=== PATIENT | male | born 1965 | race Caucasian/White ===

== ENCOUNTER 2019-06-03 07:29 | Observation (INO) ==
[2019-06-02 16:27] LABS: HEMATOCRIT 39.3 % (42.0-52.0); HEMOGLOBIN 12.6 g/dL (14.0-18.0); MCH 19.3 PG (27-31); MCHC 32.1 g/dL (33-37); MCV 60.2 FL (81-99); MPV 10.5 FL (7.4-10.4); RBC 6.53 XMIL (4.7-6.1); RDW 18.2 % (11.5-14.5); WBC 8.23 X1000 (4.8-10.8)
[2019-06-02 16:59] LABS: AGAP 14; BUN 18 mg/dL (8-22); CALCIUM 9.1 mg/dL (8.8-10.2); CHLORIDE 104 mmol/L (98-107); COSMO 285; CREATININE 1.1 mg/dL (0.7-1.2); ESTIMATED GFR > 60; GLUCOSE 98 mg/dL (70-104); POTASSIUM 4.2 mmol/L (3.5-5.1); SODIUM 142 mmol/L (136-145); TCO2 24 mmol/L (25-35)
[2019-06-03] MEDS ORDERED: KEFZOL 1 GM/D5W 2 GM/100 ML IVPB ONE (07:56)
[2019-06-03] MEDS ORDERED: LR 1,000 ML ONE (07:56)
[2019-06-03] MEDS ORDERED: PEPCID ONE (08:08)
[2019-06-03] MEDS ORDERED: REGLAN ONE (08:08)
[2019-06-03] MEDS ORDERED: FENTANYL ONE (08:32)
[2019-06-03] MEDS ORDERED: DIPRIVAN 1% ONE (08:32)
[2019-06-03] MEDS ORDERED: SODIUM CHLORIDE 0.9% 10 ML ONE (10:29)
[2019-06-03] MEDS ORDERED: NORCURON ONE (10:29)
[2019-06-03] MEDS ORDERED: ROBINUL ONE (10:32)
[2019-06-03] MEDS ORDERED: NEOSTIGMINE ONE (10:33)
[2019-06-03] MEDS ORDERED: DECADRON ONE (10:35)
[2019-06-03] MEDS ORDERED: ZOFRAN ONE (10:35)
[2019-06-03] MEDS ORDERED: AK-FLUOR ONE (10:52)
[2019-06-03] MEDS ORDERED: MORPHINE ONE ×2 (10:58→12:08)
[2019-06-03] MEDS ORDERED: QUELICIN (DOSE) ONE (11:05)
[2019-06-03] MEDS ORDERED: XYLOCAINE-MPF 2% ONE (11:05)
[2019-06-03] MEDS ORDERED: B & O 15A SUPP ONE (11:31)
[2019-06-03] MEDS ORDERED: DITROPAN ONE (12:09)
[2019-06-03] MEDS ORDERED: MORPHINE IV PRN (12:46)
[2019-06-03] MEDS ORDERED: ZOFRAN IV PRN (13:00)
[2019-06-03] MEDS ORDERED: DITROPAN PO PRN (13:00)
[2019-06-03] MEDS ORDERED: LABETALOL IV PRN (13:00)
[2019-06-03] MEDS: NORCO-7.5 PO PRN ×2 (16:16→20:21)
[2019-06-03] MEDS: LR 1,000 ML IV SCH ×3 (16:17→20:23)
[2019-06-03] MEDS: KEFZOL 1 GM/D5W 1 GM/50 ML IVPB IV SCH (16:17)
[2019-06-03] MEDS ORDERED: NICODERM PATCH TD PRN (17:15)
[2019-06-03] MEDS: COLACE PO SCH (20:21)
[2019-06-03] MEDS: PERIDEX MT SCH (20:21)
--- NOTE | 2019-06-03 22:31 | OPERATIVE NOTE ---
PROCEDURE DATE: 06/03/2019 PREOPERATIVE DIAGNOSES: 1. Bladder mass. 2. Left hydronephrosis. POSTOPERATIVE DIAGNOSES: 1. Bladder mass. 2. Left hydronephrosis. PROCEDURE PERFORMED: 1. Cystoscopy with transurethral resection of bladder tumor greater than 5 cm. 2. Attempted left retrograde pyelogram. 3. Urethral dilation. SURGEON: Nico Roberson MD. CONTRACT PROCESSOR: None. COMPLICATIONS: None. BLOOD LOSS: 20 mL. DRAINS: A 22-Thai, 3-way catheter. ANESTHESIA: General endotracheal intubation. SPECIMENS REMOVED: Bladder tumor. INDICATIONS FOR PROCEDURE: Mr. Abraham is a 53-year-old who had presented to Urology Clinic yesterday due to gross hematuria and likely bladder mass. The patient was seen in the emergency room by the ER physicians back in late April, and had a CT scan done at that time which showed a large bladder mass causing left hydronephrosis. The patient was having gross hematuria at that time and his hematuria seemed to get better per his report. However, he continues to have intermittent episodes of blood in his urine, which prompted him presenting to Urology for evaluation. Imaging reviewed, which showed an approximately 4 x 5 cm bladder mass present in the base of the bladder with associated left hydronephrosis. In talking with him, I told him there is a high likelihood that he has bladder tumor and that he likely needs surgical intervention. Risks, benefits, alternatives to surgical procedure were discussed with patient including hematuria, infection, damage to surrounding structures, pain, need for secondary surgeries, and injury to the bladder, and patient elected to proceed. DESCRIPTION OF PROCEDURE: After informed consent was obtained, the patient was brought to the operating room, placed on the operating table in supine position. The patient received preoperative antibiotics and underwent endotracheal intubation. He was then prepped and draped in usual sterile fashion. A preoperative time-out was performed with all parties in agreement, including anesthesia, surgical, and nursing staff. At which point, I inserted a 21-Thai cystourethroscope through the urethra and into the bladder. The patient had a normal urethra that was slightly narrow, with a small prostate with no evidence of obstruction. Once inside the bladder, papillary changes were seen overlying the trigone on the left side of the bladder and this transversed to a large mass present on the left lateral side wall of the bladder. It appeared to be less papillary in appearance, but more solid and had dystrophic calcifications. I could not visualize the entirety of the tumor just due to its location near the base of the bladder. The right ureteral orifice was seen to be uninvolved with tumor. At which point, no other lesions were seen within the bladder itself. The cystourethroscope was then removed. Using Brittni sounds starting at 20- Thai and increasing up to 28 F, these were sequential placed for passive dilation of the urethra. This allowed for easy passage of the 25-Thai resectoscope element. Once this was placed, the resectoscope was then assembled, and using bipolar electrocautery, attention was placed to resecting the base of the tumor, starting medially and working laterally to get a plane at the base of the tumor. Once this was resected, attention was then placed to the largest portion of the tumor, serially dissecting down until we could reach our prior resection scar. Attention was placed not to take deep bites overlying the trigone as this was concerning of the location of the left ureteral orifice. Once the entirety of the tumor was able to be systematically resected, no obvious ureteral orifice was seen. There did appear to be some fold of tissue that could be the ureteral orifice. Once good hemostasis was obtained in the periphery of the resection site, all of the chips were then removed through the resectoscope element and hemostasis was seen. At which point, I reinserted the 21-Thai cystourethroscope through the urethra and up into the bladder, and then the patient was given fluorescein dye to see if we could see the ureteral orifice effluxing. No efflux was seen from the left side. However, good efflux was seen from the right ureteral orifice, whereas no efflux was seen from the left ureteral orifice. Ultimately, I was able to use an open-ended catheter and a wire, and attempted to place the wire through what appeared to be a possible ureteral orifice. It seemed to go a small distance. The open-ended catheter was advanced and attempted retrograde was then performed, which showed the contrast was not within the ureteral lumen, but extravesical. No obvious site for the ureteral orifice was seen on inspection of the entirety of the bladder on the left side. At which point, the cystourethroscope was removed, the resectoscope element was then reinserted, and the peripheral of the resection scar was then cauterized. The patient's bladder was cycled multiple times with no residual chips seen within the bladder itself. The resection site was a total of 5 cm in size with some papillary changes seen posterior and lateral to the initial tumor. All of this was cauterized and resected down to the base. Hemostasis was obtained. The patient's bladder was left full and a 22-Thai, 3-way catheter was inserted with ease into the bladder, which drained light pink irrigant. This was inflated with 20 mL of sterile water and placed to gravity drainage. Catheter was flushed multiple times with no residual clots returning. This was placed to gravity drainage and a B & O suppository was inserted. The patient was then awoken and was taken to Recovery in stable condition. The patient will be monitored overnight and will plan to discharge tomorrow with indwelling catheter. Will follow up for evaluation of worsening renal function and flank pain due to inability to place a left ureteral stent due to hydronephrosis from tumor obstruction. At baseline, the patient likely has T3 disease due to preoperative hydronephrosis. We will evaluate clinically. If he has worsening renal function or flank pain, would consider percutaneous nephrostomy tube placement. cc: Nico Roberson MD [facility]
[2019-06-04] MEDS: KEFZOL 1 GM/D5W 1 GM/50 ML IVPB IV SCH ×2 (00:29→08:19)
[2019-06-04] MEDS: NORCO-7.5 PO PRN ×2 (00:30→05:20)
[2019-06-04 06:52] LABS: HEMATOCRIT 34.9 % (42.0-52.0); HEMOGLOBIN 11.2 g/dL (14.0-18.0); MCH 19.9 PG (27-31); MCHC 32.1 g/dL (33-37); MCV 61.9 FL (81-99); MPV 10.7 FL (7.4-10.4); RBC 5.64 XMIL (4.7-6.1); WBC 11.46 X1000 (4.8-10.8)
[2019-06-04 07:12] LABS: CALCIUM 8.5 mg/dL (8.8-10.2); CREATININE 1.4 mg/dL (0.7-1.2); POTASSIUM 3.8 mmol/L (3.5-5.1)
[2019-06-04 07:38] VITALS: BP 134/72
[2019-06-04] MEDS: COLACE PO SCH (08:19)
[2019-06-04] MEDS: PERIDEX MT SCH (08:20)
== END 2019-06-04 09:31 | disposition home or self-care (01) ==
LOC: 4N 07:29 → OR 07:29
PROVIDERS: ADMIT Urology; ATTEND Urology

== ENCOUNTER 2019-11-24 10:34 | Inpatient (IN) ==
[2019-11-24] MEDS ORDERED: NS 1,000 ML IV ONE ×2 (10:56→14:43)
[2019-11-24] MEDS ORDERED: ZOFRAN IV ONE (10:56)
[2019-11-24] MEDS ORDERED: D50W SYRINGE ONE (11:06)
--- NOTE | 2019-11-24 11:37 | Diag Imaging Result Doc PS360 ---
EXAM: CHEST-1 VIEW 11/24/2019 HISTORY: SOB TECHNIQUE: AP portable at 1117 COMMENT: There is ill-defined opacity in the left upper lobe and left lower lobe. The right lung appears relatively clear. There are no previous studies. IMPRESSION: Bronchopneumonia on the left. Electronically signed by Jacky Christianson 11/24/2019 11:35 AM
[2019-11-24 11:38] LABS: INR 1.34; PROTIME 16.8 Seconds (11.0-16.0)
[2019-11-24] MEDS ORDERED: D50W SYRINGE IV ONE ×3 (11:38→17:48)
[2019-11-24 11:39] LABS: BASO# 0.02 X1000 (0.0-0.2); BASO% 0.1 % (0.0-0.8); EOS# 0.02 X1000 (0.0-0.7); EOS% 0.1 % (0.0-10.0); HEMATOCRIT 19.8 % (42.0-52.0); HEMOGLOBIN 6.6 g/dL (14.0-18.0); IMM GRAN# 0.19 X1000 (0.0-0.04); IMM GRAN% 1.3 % (0.0-0.5); LYMPH# 0.77 X1000 (1.2-3.4); LYMPH% 5.2 % (20.5-51.1); MCH 18.5 PG (27-31); MCHC 33.3 g/dL (33-37); MCV 55.6 FL (81-99); MONO# 0.57 X1000 (0.11-0.59); MONO% 3.8 % (1.7-9.3); NEUT# 13.36 X1000 (1.4-6.5); NEUT% 89.5 % (42.2-75.2); PLT 346 X1000 (130-400); PTT 33.1 Seconds (22.3-41.8); RBC 3.56 XMIL (4.7-6.1); RDW 18.7 % (11.5-14.5); WBC 14.93 X1000 (4.8-10.8)
[2019-11-24] MEDS ORDERED: LEVAQUIN 750 MG/D5W 750 MG/150 ML IVPB IV ONE (11:42)
[2019-11-24 11:54] LABS: ALLEN TEST NO; BE -17.4 mmoll (-3.0-3.0); BLOOD TYPE ARTERIAL; HCO3-(ACT) 11.3 mmoll (20.0-26.0); METHB 1.4 % (0.0-1.5); O2(CT) 9.1 mL/dL (15.0-23.0); PCO2(98.6) 24 mmHg (35-45); PO2(98.6) 74 mmHg (60-100); SAMPLE BLOOD; SAO2 92.3 % (95.0-100.0)
[2019-11-24 11:55] LABS: MODALITY CANNULA
[2019-11-24 11:56] LABS: pH(98.6) 7.19 (7.35-7.45)
[2019-11-24 12:29] LABS: ANISOCYTOSIS 1+; HYPOCHROM 1+; LYMPHS 6 % (21-51); MONO 4 % (1-9); SEGS 90 % (42-75)
[2019-11-24 12:30] LABS: MICROCYTOSIS 3+; POIKILOCYTOSIS 1+; SCHISTOCYTES OCCASIONAL
--- NOTE | 2019-11-24 12:40 | EKG Report ---
Test Performed on : 11/24/2019 10:43:48 AM Test Reason : WEAKNESS Blood Pressure : / mmHG Vent. Rate : 110 BPM Atrial Rate : 113 BPM P-R Int : 000 ms QRS Dur : 162 ms QT Int : 462 ms P-R-T Axes : 000 128 021 degrees QTc Int : 625 ms Wide QRS rhythm. Right bundle branch block Left posterior fascicular block Bifascicular block Abnormal ECG No previous ECGs available Unconfirmed Result
[2019-11-24 13:01] LABS: ACETAMINOPHEN 5.1 ug/mL (10-30); AGAP 47; ALB/GLOB RATIO 1.4; ALBUMIN 3.9 g/dL (3.5-5.0); ALKALINE PHOSPHATASE 98 U/L (32-122); BUN 240 mg/dL (8-22); CALCIUM 8.1 mg/dL (8.8-10.2); CHLORIDE 79 mmol/L (98-107); COSMO 355; ESTIMATED GFR 1; GLUCOSE 49 mg/dL (70-104); GOT 37 U/L (10-34); GPT 23 U/L (10-44); SALICYLATES < 3.00 mg/dL (3-10); SODIUM 137 mmol/L (136-145); TCO2 11 mmol/L (25-35); TOTAL BILIRUBIN 0.29 mg/dL (0.20-1.00); TOTAL PROTEIN 6.7 g/dL (6.3-8.3)
--- NOTE | 2019-11-24 13:01 | Diag Imaging Result Doc PS360 ---
EXAM: CT HEAD W/O CONTRAST 11/24/2019 HISTORY: WEAKNESS TECHNIQUE: This exam was performed using automated exposure control, adjustment of mA or kV according to patient size, and/or use of iterative reconstruction technique. COMMENT: There are no previous studies available for comparison. There is no evidence of mass effect, bleed, or abnormal extra-axial fluid collection. Some of the images are degraded by patient motion. Two acquisitions were obtained. The visualized paranasal sinuses are clear. The calvarium appears to be intact. IMPRESSION: No evidence of acute intracranial disease. Electronically signed by Jacky Christianson 11/24/2019 12:59 PM
[2019-11-24 13:05] LABS: POTASSIUM 9.7 mmol/L (3.5-5.1)
[2019-11-24 13:06] LABS: CREATININE 33.3 mg/dL (0.7-1.2)
[2019-11-24] MEDS ORDERED: SODIUM BICARBONATE 8.4% IV PUSH ONE (13:09)
[2019-11-24] MEDS ORDERED: HUMULIN R IV ONE ×2 (13:09→17:51)
[2019-11-24] MEDS ORDERED: KAYEXALATE PO ONE (13:10)
[2019-11-24] MEDS ORDERED: MORPHINE IV ONE (13:14)
--- NOTE | 2019-11-24 13:26 | Diag Imaging Result Doc PS360 ---
EXAM: CT ABDOMEN/PELVIS W/O CONTRAST 11/24/2019 HISTORY: HEMATURIA TECHNIQUE: This exam was performed using automated exposure control, adjustment of mA or kV according to patient size, and/or use of iterative reconstruction technique. COMMENT: There are patchy alveolar opacities present in both lower lobes the lingula and the right middle lobe and particularly in the left lower lobe. There is a pleural effusion on the right. None of these findings were present on 05/18/2019. There is a fair amount of stool present in the colon. Both kidneys are grossly hydronephrotic. This is much worse than on the previous study. The urinary bladder is not distended but is markedly thickened with particular focal thickening in the posterior lateral left side. There is considerable presacral soft tissue density and there are numerous perirectal nodes none of which was present at the time the previous study. There is external iliac adenopathy bilaterally which is much worse than on the previous study. There is periaortic adenopathy most notably below the level the renal pedicle on the left where there is a node measuring almost 15 mm. This is much larger than on the previous study. There is no evidence of small bowel obstruction. The appendix is normal in appearance. There is a granuloma in the spleen. The adrenal glands are not enlarged. There are no gross hepatic or pancreatic abnormalities in the absence of IV contrast. There are numerous lytic lesions present in the pelvis most notably in the anterior inferior pubic ramus on the left. This was not the case previously. There are also small lytic lesions present in the sacrum and L4. IMPRESSION: Advanced bladder carcinoma with extensive adenopathy, including in the retroperitoneum in the left periaortic region. Osseous metastatic disease. Severe bilateral hydronephrosis due to obstruction of the distal ureters. Constipation. The possibility of proctitis or direct involvement of the perirectal space by tumor cannot be excluded. Electronically signed by Jacky Christianson 11/24/2019 1:24 PM
--- NOTE | 2019-11-24 14:21 | PROVIDER DOCUMENTATION ---
This chart was entered by Dianne Orozco Scribe, acting as scribe for Tk Reddy MD. HPI-General Adult - General Stated Complaint: WEAKNESS,BLADDER CANCER Time Seen by Provider: 11/24/19 10:49 Source: patient Allergies/Adverse Reactions: Patient Allergies Allergy/AdvReac Type Severity Reaction Status Date / Time No Known Allergies Allergy Verified 06/03/19 07:54 Home Medications: Home Medication List Medication Instructions Recorded Confirmed Last Taken Type Aspirin/Acetaminophen [Goody's 1 packet PO BID PRN 05/18/19 06/03/19 05/31/19 History Body Pain Powder Pkt] Hydrocodone/Acetaminophen [Spivey 1 ea PO Q6H PRN #10 tab 06/04/19 Unknown Rx 5-325 Tablet] Oxybutynin [Ditropan] 5 mg PO Q8H PRN #12 tab 06/04/19 Unknown Rx Sulfamethoxazole/Trimethoprim 1 ea PO BID #6 tab 06/04/19 Unknown Rx [Bactrim Ds Tablet] - History of Present Illness -Gen Adult Nature of Presenting Problems: 53yom presents to ED cc weakness, dizziness, vomiting and increased petechia for last 2 weeks. Pt reports he was dx with bladder cancer last yr, referred to an Oncologist, referred for surgery but refused tx. Pt denies hematuria/F. Pt has been taking lots of Goody's powder and taking meds off internet for 'dog worms' lately. Pt blood sugar is 45 upon exam. Location of Pain/Injury: reports: generalized Severity: reports: mild, moderate Onset/Duration: reports: last week Timing: reports: still present Context/Activities at Onset: reports: light activity Modifying Factors: improves with: nothing Associated Symptoms: reports: dizziness, nausea, vomiting, weakness Similar Symptoms Previously?: Yes Recently seen or treated by another doctor?: No Review of Systems - Adult - REVIEW OF SYSTEMS - ADULT Constitutional: reports: see eliu RUBALCAVA. denies: chills, fever Eyes: reports: no symptoms reported Ears, Nose, Mouth & Throat: reports: no symptoms reported Cardiovascular: reports: no symptoms reported Respiratory: reports: no symptoms reported Gastrointestinal: reports: see HPI, nausea, vomiting. denies: abdominal pain, diarrhea Genitourinary: reports: no symptoms reported Musculoskeletal: reports: no symptoms reported Integumentary: reports: no symptoms reported Neurological: reports: see HPI, dizziness/vertigo Psychiatric: reports: no symptoms reported Endocrine: reports: no symptoms reported Hematologic/Lymphatic: reports: see HPI, other (petechia) Allergic/Immunologic: reports: no symptoms reported All Other Systems: Reviewed and Negative Past History - Adult - PAST MEDICAL HISTORY-ADULT Review of Records: reports: Nursing Assessment Review, Medications Reviewed, Social history reviewed & non-contributory. Major Childhood Illnesses: reports: denies history Cardiovascular: reports: denies history Respiratory: reports: denies history Gastrointestinal: reports: denies history Obstetrical/Gynecological: reports: denies history Genitourinary: reports: denies history Musculoskeletal: reports: chronic pain (back) Neurological: reports: denies history Endocrine/Immune: reports: denies history Other Conditions: reports: denies history - IMMUNIZATION STATUS Childhood Immunizations: See Nurse Assessment Flu Vaccine: See Nurse Assessment - FAMILY HISTORY Family History: reviewed, not pertinent - SOCIAL HISTORY Smoking: cigarettes, greater than 1 pack/day Provider spent 3-5 mins advising pt. on dangers of tobacco.: Discussed manners to quit use, and f/u contacts for add'l counseling. Physical Exam-General - PHYSICAL EXAM-ADULT Initial Vital Signs Reviewed: Yes - CONSTITUTIONAL General Appearance: alert. negative: anxious, combative - EYES Eyes: PERRL/EOMI, pale conjunctivae (bilateral). negative: photophobia - HEAD, EARS, NOSE, MOUTH & THROAT HENMT: normocephalic/atraumatic. negative: moist mucous membranes (dry), angioedema - NECK Neck: supple, normal inspection - RESPIRATORY Respiratory: chest non-tender, lungs clear, normal breath sounds. negative: rhonchi, wheezing - CARDIOVASCULAR Cardiovascular: normal peripheral pulses, regular rate, rhythm, no edema. negative: bradycardia, tachycardia - GASTROINTESTINAL (ABDOMEN) Abdominal Exam: normal bowel sounds, non tender, soft. negative: guarding, rebound - MUSCULOSKELETAL Extremity: normal inspection, no pedal edema, no calf tenderness, normal capillary refill. negative: deformity, swelling - SKIN Integumentary: normal turgor, petechiae. negative: diaphoresis, jaundice - PSYCHIATRIC Psych/Mental Status: normal mood/affect, oriented x 3. negative: anxious, disheveled Progress - PLAN OF CARE/RESULTS Result Diagrams: 11/24/19 11:00 11/24/19 11:00 - EKG 1 Time of EKG reading by physician:: 10:44 EKG Read and Signed by:: Tk Reddy EKG Interpretation (*Must complete 3 of following elements*): Abnormal (Nonspecific intraventricular block) [place]: right ST Wave: normal - XRAY 1 XRAY: Bilateral XRAY Study: Chest Impression: See EMR Report (IMPRESSION: Bronchopneumonia on the left. Electronically signed by Jacky Christianson 11/24/2019 11:35 AM) - CT/MRI 1 CT Study: Abdomen, Pelvis Impression: See EMR Report (IMPRESSION: Advanced bladder carcinoma with extensive adenopathy, including in the retroperitoneum in the left periaortic region. Osseous metastatic disease. Severe bilateral hydronephrosis due to obstruction of the distal ureters. Constipation. The possibility of proctitis or direct involvement of the perirectal space by tumor cannot be excluded. Electronically signed by Jacky Christianson 11/24/2019 1:24 PM) 2 CT Study: Head Impression: See EMR Report (IMPRESSION: No evidence of acute intracranial disease. Electronically signed by Jacky Christianson 11/24/2019 12:59 PM) - CONSULTS/PCP/HOSPITALIST Notification #1 *Consult/PCP/Hospitalist*: Dr. Holden Time Discussed: 13:56 Consult Disposition: other (wants pt in ICU and surgery consulted for access) #2 Consult: Fannie/[employer] Time Discussed: 13:58 Consult Disposition: Admit Departure - Departure Date of Disposition Decision: 11/24/19 Time of Disposition Decision: 13:57 DIAGNOSIS: Anemia Pneumonia Qualifiers: Pneumonia type: due to unspecified organism Laterality: unspecified laterality Lung location: unspecified part of lung Qualified Code(s): J18.9 - Pneumonia, unspecified organism Acute renal failure (ARF) Qualifiers: Acute renal failure type: unspecified Qualified Code(s): N17.9 - Acute kidney failure, unspecified Disposition: ADMITTED INPATIENT 09 Certified Medical Emergency: Emergent Condition: Critical Referrals and Follow-Ups: None,PCP [Primary Care Provider] - Discharge Education: Steps to Quit Smoking, [id number] - Critical Care Note This patient required my direct & personal management of CC.: Yes Total Time (mins): 120 Critical Care Statement: This patient required my direct personal management to treat or rule out processes, the absence of which, could potentiallly result in sudden, clinically significant life or limb threatening deterioration. Attestation - Physician/ ANTHONY Attestation Patient care was provided by Advanced Practice Provider:: No The physician spent face to face time with patient:: Yes Advanced Practice Provider documentation review:: Supervising physician onsite and consulted in the evaluation and care of this patient. The physician did have a face to face encounter with the patient. This chart was documented by the indicated scribe, (Dianne Orozco Scribe) and accurately reflects the services I performed and decisions made by me, Tk Reddy MD, as attested by the provider's signature.
[2019-11-24] MEDS ORDERED: SODIUM BICARBONATE 8.4% IV ONE (15:27)
[2019-11-24] MEDS ORDERED: ZOFRAN IV PRN (15:28)
[2019-11-24] MEDS: SODIUM BICARBONATE 8.4% 150 MEQ in D5W 1,000 ML IV SCH (16:07)
[2019-11-24] MEDS: LOKELMA POWDER PACKET PO SCH (16:08)
[2019-11-24] MEDS ORDERED: ATIVAN IV ONE (16:15)
[2019-11-24] MEDS ORDERED: ATIVAN ONE (16:21)
[2019-11-24] MEDS ORDERED: NS 2,000 ML MISC PRN (16:25)
--- NOTE | 2019-11-24 17:15 | Diag Imaging Result Doc PS360 ---
EXAM: CHEST-PORTABLE INDICATION: vas cath placement verification TECHNIQUE: One view COMPARISON: 11/24/2019 FINDINGS: There is a newly placed double-lumen central catheter. The tip projects over the region of the atriocaval junction in the expected position. There is no evidence of pneumothorax postplacement. There has been interval worsening of the infiltrates throughout the left lung since the previous study. There also appears to have been development of perihilar infiltrate on the right. Cardiac silhouette is stable. IMPRESSION: 1.Interval placement of right central line in the expected position with no evidence of postplacement pneumothorax. 2.Interval worsening of infiltrates throughout the left lung and development of right perihilar infiltrate. Electronically signed by Shine Green 11/24/2019 5:13 PM
[2019-11-24] MEDS ORDERED: NS 500 ML IV ONE (17:35)
[2019-11-24 17:42] LABS: CALCIUM 7.6 mg/dL (8.8-10.2)
[2019-11-24 17:43] LABS: CREATININE 28.4 mg/dL (0.7-1.2)
[2019-11-24] MEDS ORDERED: MAXIPIME 1 GM in NS 50 ML IV ONE (17:46)
[2019-11-24] MEDS ORDERED: CALCIUM GLUCONATE 4.65 MEQ in NS 50 ML IV ONE (17:51)
[2019-11-24] MEDS ORDERED: ALBUTEROL 0.5% INH CONC FOR HYPERKALEMIA INH ONE (17:52)
[2019-11-24] MEDS: ZYVOX 600 MG/D5W 600 MG/300 ML IVPB IV SCH (18:33)
--- NOTE | 2019-11-24 19:08 | HISTORY AND PHYSICAL ---
CHIEF COMPLAINT: He was just not feeling well. HISTORY OF PRESENT ILLNESS: He is a 53-year-old male. He was diagnosed with bladder cancer about a year ago but refused all treatments. The only treatment he has used reportedly, he takes Goody powders and then he got some sort of medication off the Internet to treat parasitic infection in dogs, dog worm medication none. Unclear how much and how long he has been taking that I would say within the last week or so. Unclear if he has any baseline psychiatric issues, but he has had weakness, dizziness, vomiting, but now he wants treatment. I do not think he has had any urine output in at least 24 hours could be longer. He came in with profound renal failure, profound hyperkalemia for which he is undergoing dialysis as we speak. He was mentating well, although I think he has gotten since somewhat lethargic, but in any case, he was admitted for acute renal failure, most likely post obstructive uropathy from his bladder cancer with subsequent hyperkalemia and arrhythmia. The patient is critically ill. PAST MEDICAL HISTORY: He denies anything except bladder cancer. PAST SURGICAL HISTORY: Denies. FAMILY HISTORY: He has a sister who is diabetic. Mother with breast cancer. SOCIAL HISTORY: He does smoke about a pack a day for the last 20 years. No ethanol. No drugs. ALLERGIES: No known drug allergies. REVIEW OF SYSTEMS: Otherwise negative in terms of 10 point review of systems. PHYSICAL EXAMINATIONS: Vital Signs: Blood pressure 133/81, heart rate of 109, respiratory rate of 20. Temperature was 98.8 degrees. Cardiovascular: Regular rate and rhythm. Pulmonary: Bilateral breath sounds clear to auscultation. Gastrointestinal: Abdomen soft, nontender, nondistended. Bowel sounds are positive. Neurologic: Nonfocal. Musculoskeletal: 4/5 in all 4 extremities. HEENT: He had JVD on exam. He had injected sclerae. LABORATORY DATA: His labs are just wildly remarkable. His hemoglobin and hematocrit is 6.6 and 19. Coags okay; pH 7.19. His initial BUN and creatinine were 240 and 33 with a potassium of 9.7 and a bicarb of 11. His glucose was 45, came up to [address] showed worsening disease of the bladder. He has not had treatment but with bilateral ureteral obstruction and hydronephrosis, so he has a ureteral obstruction, which may be related to his cancer. ASSESSMENT: This is a 53-year-old male with bladder cancer, which I think at this point he has osseous metastatic disease: 1. Acute kidney injury. Due to the obstruction, we were unable to pass a Kam. Urology has been consulted but they need to be involved, although if he has a distal obstruction, he may need a nephrostomy tube at the discretion of Urology. Appreciate nephrology opinion. Continue IV fluids, urine electrolytes and monitor. 2. Hyperkalemia which is profound and amazingly elevated. We will continue. He is on a bicarbonate infusion. He is getting a nebulizer treatment around the clock and then now he is getting urgently dialyzed. 3. Potassium level is improved but not quite there yet. Bladder cancer looks like it is metastatic. We will get oncology opinion once we get all our information. It does not sound like he wants to be aggressive except for alternative medicine treatments at this point with it is spreading. DISPOSITION: Pending clinical status. Prognosis extremely guarded. We have consulted Dr. Roberson, Dr. Gómez and Dr. Gilmore. I will probably add Dr. Vila or Sofia the intensivists because he is having progressive hypoxia and we will continue to monitor closely. This is a 35 minute critical care note for acute hyperkalemia requiring intravenous medications, respiratory failure, emergent dialysis. cc: Ulises Hodges MD
--- NOTE | 2019-11-24 19:19 | OPERATIVE NOTE ---
PROCEDURE DATE: 11/24/2019 PREOPERATIVE DIAGNOSIS: Acute renal failure. POSTOPERATIVE DIAGNOSIS: Acute renal failure. PRINCIPAL PROCEDURE: Right internal jugular Vas-Cath using ultrasound. SURGEON: Yue Gilmore MD ANESTHESIA: Local in addition to IV sedation. ESTIMATED BLOOD LOSS: 25 mL DRAINS: None. INDICATIONS: Mr. Parminder Abraham is a 53-year-old white male who has developed acute renal failure and needs urgent hemodialysis. We were asked to place access. DESCRIPTION OF PROCEDURE: The patient was placed supine in his bed, ICU 3. His head was turned to the left and his right neck, shoulder and anterior chest were prepped and draped within a sterile field. I used ultrasound between the 2 heads of the right sternocleidomastoid muscle to identify the right internal jugular vein, which I accessed using an 18-gauge needle. Through this needle I placed a guidewire into the right side of the heart. The needle was removed. I placed a dilator over the guidewire, and then a Trialysis catheter was placed over the guidewire into the superior vena cava. The guidewire was removed. All 3 ports of the Trialysis catheter were functioning and were flushed with saline. I secured the catheter to the skin with two 3-0 nylon stitches, followed by dry dressing and an OpSite. He tolerated the procedure well. We will get a portable chest x-ray to confirm placement, with plans for dialysis later today. cc: Yue Gilmore MD
[2019-11-24 19:50] LABS: ALLEN TEST YES; BE -7.7 mmoll (-3.0-3.0); BLOOD TYPE ARTERIAL; HCO3-(ACT) 18.9 mmoll (20.0-26.0); METHB 2.8 % (0.0-1.5); O2(CT) 10.2 mL/dL (15.0-23.0); O2HB 94.3 % (95.0-99.0); PCO2(98.6) 31 mmHg (35-45); PO2(98.6) 357 mmHg (60-100); SAMPLE BLOOD; SRATE 20 BPM; THB 6.9 g/dL (11.5-17.4); pH(98.6) 7.35 (7.35-7.45)
--- NOTE | 2019-11-24 19:50 | NEPHROLOGY CONSULTATION ---
DATE: 11/24/2019 REASON FOR CONSULTATION: Acute kidney injury and hyperkalemia. HISTORY OF PRESENT ILLNESS: Mr. Abraham is a 53-year-old white male who was diagnosed with bladder cancer approximately 1 year ago. He did not accept traditional medical care and was lost to followup. He states that over the last several weeks, he has had progressively worsening weakness, shortness of breath, anorexia, nausea, twitching, etc., and declining urine output. Because of his worsening and severe symptoms, he came to the emergency room today. His initial evaluation disclosed blood pressure of 135/88, heart rate 92, respirations 16, and profound laboratory abnormalities, including potassium of 9.7, bicarbonate of 11 with anion gap of 47, BUN of 240, and creatinine of 33. Last creatinine in the chart from May was 1.4. I was contacted directly by Dr. Reddy to assist with management. He had already administered emergency care for his hyperkalemia, including IV bicarbonate, polystyrene, IV fluids, IV insulin, D50. On my arrival, he did not have EKG changes. Contacted Dr. Gilmore for access placement. PAST MEDICAL HISTORY: As above. HOME MEDICATIONS: None. ALLERGIES: None. SOCIAL HISTORY: Occasional marijuana. Minimal alcohol. FAMILY HISTORY: Negative. REVIEW OF SYSTEMS: Negative. PHYSICAL EXAMINATION: Vital Signs: Blood pressure 135/88, heart rate 92, respirations 16, afebrile. General: Chronically ill-appearing, pale, middle-aged man. Some increased work of breathing. Skin: Pale and dry. Eyes: Conjunctivae are pink. Pupils are equal. ENT: Oropharynx is dry. Poor dentition. Neck: Supple. Trachea is midline. Neck vein distention is present. Heart: PMI is nondisplaced. Regular rate and rhythm. No rubs. No gallops. Lungs: Equal breath sounds. A few scattered crackles. Abdomen: Soft, nontender. Bowel sounds present. No organomegaly or masses. Extremities: 2+ edema. No clubbing or cyanosis. Neurologic Exam: Myoclonus and asterixis. IMPRESSION: Renal failure. He has bilateral ureteral obstruction and an empty bladder. Unable to pass Kam catheter. Complicated by hyperkalemia and metabolic acidosis. Because of his severe uremia, he is at high risk for dialysis disequilibrium syndrome. As such, we will dialyze for only 3 hours using 200 blood flow and 200 dialysate flow, 2K bath, 2 L ultrafiltration target. Remeasure labs. Repeat dialysis in the morning. cc: Carlos Gómez MD
[2019-11-24 19:51] LABS: MODALITY BI PAP
[2019-11-24 20:59] LABS: CREATININE 15.9 mg/dL (0.7-1.2)
[2019-11-24] MEDS: SOLU-MEDROL IV SCH (23:12)
[2019-11-24] MEDS: ATIVAN IV PRN (23:15)
[2019-11-24] MEDS: XOPENEX NEB INH SCH (23:20)
[2019-11-24] MEDS: ATROVENT NEB INH SCH (23:21)
[2019-11-24 23:41] LABS: CREATININE 19.7 mg/dL (0.7-1.2)
[2019-11-24 23:42] LABS: CALCIUM 7.8 mg/dL (8.8-10.2); POTASSIUM 5.4 mmol/L (3.5-5.1)
[2019-11-25] MEDS: XOPENEX NEB INH SCH ×6 (02:57→23:00)
[2019-11-25] MEDS: ATROVENT NEB INH SCH ×6 (02:57→23:01)
[2019-11-25 04:44] LABS: ALLEN TEST YES; BE -5.6 mmoll (-3.0-3.0); BLOOD TYPE ARTERIAL; HCO3-(ACT) 20.6 mmoll (20.0-26.0); METHB 0.9 % (0.0-1.5); PCO2(98.6) 32 mmHg (35-45); PO2(98.6) 112 mmHg (60-100); SAMPLE BLOOD; SAO2 98.4 % (95.0-100.0); SRATE 20 BPM; THB 7.2 g/dL (11.5-17.4); pH(98.6) 7.38 (7.35-7.45)
[2019-11-25 04:45] LABS: MODALITY BI PAP
[2019-11-25] MEDS: SODIUM BICARBONATE 8.4% 150 MEQ in D5W 1,000 ML IV SCH ×2 (05:47→14:31)
[2019-11-25] MEDS ORDERED: NS 2,000 ML MISC PRN ×2 (05:49→06:18)
[2019-11-25] MEDS: SOLU-MEDROL IV SCH ×3 (06:07→21:17)
[2019-11-25] MEDS: ZYVOX 600 MG/D5W 600 MG/300 ML IVPB IV SCH ×2 (06:11→17:32)
--- NOTE | 2019-11-25 07:23 | Diag Imaging Result Doc PS360 ---
EXAM: CHEST-PORTABLE 11/25/2019 HISTORY: infiltrates TECHNIQUE: AP portable at 0505 COMMENT: There is increased opacification and volume loss in the right upper lobe compared to 11/24/2019. There is diffuse alveolar opacity in the left lung as there was previously. The right lower lobe and middle lobe are somewhat clearer and better expanded. Some of this may be due to air trapping however. IMPRESSION: Worsened atelectasis and/or pneumonia in the right upper lobe. Electronically signed by Jacky Christianson 11/25/2019 7:20 AM
[2019-11-25 07:32] LABS: CALCIUM 7.7 mg/dL (8.8-10.2); POTASSIUM 5.7 mmol/L (3.5-5.1)
[2019-11-25] MEDS: ATIVAN IV PRN ×3 (07:36→18:30)
[2019-11-25 07:50] LABS: CREATININE 20.2 mg/dL (0.7-1.2)
[2019-11-25] MEDS ORDERED: NS 500 ML ONE (08:17)
[2019-11-25] MEDS ORDERED: PROTONIX IV SCH (09:00)
[2019-11-25] MEDS: LOKELMA POWDER PACKET PO SCH (09:47)
[2019-11-25 10:45] LABS: HEPATITIS PROFILE ACUTE SEE COMMENTS
[2019-11-25] MEDS: HALDOL IV PRN ×2 (11:15→17:09)
[2019-11-25] MEDS ORDERED: DILAUDID IV PRN (13:06)
[2019-11-25] MEDS: LABETALOL IV PRN ×2 (13:15→17:09)
[2019-11-25] MEDS ORDERED: DILAUDID ONE (13:54)
[2019-11-25 13:55] LABS: HEMATOCRIT 21.7 % (42.0-52.0); HEMOGLOBIN 7.4 g/dL (14.0-18.0); IMM GRAN# 0.04 X1000 (0.0-0.04); IMM GRAN% 0.4 % (0.0-0.5); LYMPH# 0.29 X1000 (1.2-3.4); LYMPH% 2.8 % (20.5-51.1); MCH 21.1 PG (27-31); MCHC 34.1 g/dL (33-37); MCV 61.8 FL (81-99); MONO# 0.24 X1000 (0.11-0.59); MONO% 2.3 % (1.7-9.3); NEUT# 9.78 X1000 (1.4-6.5); NEUT% 94.5 % (42.2-75.2); PLT 221 X1000 (130-400); RBC 3.51 XMIL (4.7-6.1); RDW 26.9 % (11.5-14.5); WBC 10.35 X1000 (4.8-10.8)
--- NOTE | 2019-11-25 13:58 | PROVIDER PROGRESS NOTE ---
Progress Note Subjective: he is lying in the bed and has just started his slow low efficiency dialysis treatment. He complains of a dry mouth. No other complaints noted. Objective: temperature 98.1, pulse 105, respirations 21, blood pressure 134/83, 02 sat 99% on BiPAP. General: chronically ill white male lying in bed in no acute distress. HEENT: normocephalic, atraumatic, pupils equal and reactive, mucous membranes dry. Skin: pale, warm and dry. Neck: supple, 6 cm JVD Cardiovascular: S1, S2, distant heart tones. Tachycardic rate and rhythm. No murmurs or gallops noted. Respiratory: coarse lungs anteriorly Abdomen: soft, nontender, nondistended. Active bowel sounds. : non inspected Extremities: One plus pitting edema to the bilateral lower extremities with generalized upper extremity Edema Neurological: alert, oriented to person and place. Labs: sodium 140, potassium 5.7, chloride 93, carbon dioxide 17, BUN 135, creatinine 20.2, calcium 7.7. Intake 2750, output 2000. Impression: Acute renal failure with severe uremia and metabolic acidosis. He has advanced bladder carcinoma with extensive adenopathy severe bilateral hydronephrosis with obstruction of the distal ureters. He required urgent dialysis yesterday and achieved a 2 L ultrafiltration. We will repeat slow low efficiency dialysis today with a 4K bath and attempt a 4 to 6 L ultrafiltration over the course of 12 hours. Blood pressure. Stable. Fluid volume. Expanded. Sled for management. Electrolytes. Hyperkalemia. Sled for management. Acid base balance. Severe metabolic anion gap acidosis related to renal failure. Bicarbonate drip and Sled for management. Nutrition. He is NPO at this time. We will defer to primary. Medication review. IV antibiotics with dialysis. Discontinue lokelma
[2019-11-25] MEDS ORDERED: SODIUM CHLORIDE 0.9% INJ SCH (14:30)
[2019-11-25 14:49] LABS: ANISOCYTOSIS 1+; HYPOCHROM 2+; LYMPHS 3 % (21-51); MICROCYTOSIS 1+; MONO 2 % (1-9); SEGS 95 % (42-75)
[2019-11-25] MEDS: PROTONIX IV SCH (15:09)
--- NOTE | 2019-11-25 15:16 | PROGRESS NOTE ---
DATE: 11/25/2019 SUBJECTIVE: He is pretty obtunded. OBJECTIVE: Blood pressure is 157/90, heart rate of 90, respiratory rate of 20, temperature afebrile. Cardiovascular: Regular rate and rhythm. Pulmonary: Bilateral breath sounds clear to auscultation. GI: Soft, nontender, nondistended. Bowel sounds were positive. He was 94% on 50. Laboratory Data: White count 10, hemoglobin and hematocrit were 7 and 21, platelets 221,000. Chemistry: Potassium 5.7, creatinine down to 20, BUN down 135, bicarb was still at 17, sugars in the 150s. PROBLEM LIST: 1. He has metastatic prostate cancer, retroperitoneal adenopathy. He has osseous metastatic disease. He has bilateral distal ureter obstruction which has caused hydronephrosis and kidney failure. He is undergoing dialysis currently to get his potassium down and adjust his other issues. Greatly appreciate Dr. Gómez and Dr. Gilmore's intervention. Dr. Roberson is monitoring him as well. He had refused treatment in the past. Yesterday, he said he did want treatment. Now, he is pretty much minimally responsive so I do not have much to go by right now. 2. Acute kidney injury, obstructive uropathy. He will likely need a nephrostomy once his kidney function recovers. 3. Hyperkalemia. That is also improved. We will continue to follow closely. He is getting dialyzed. 4. Pneumonia. He is empirically on antibiotics. He has hypoxic respiratory failure. 5. Severe metabolic acidosis due to azotemia and uremia. We have him on bicarb and again, he is getting dialyzed. 6. Disposition is will depend on how he is doing. He is not really awake enough to make decisions. In my mind, he did not want treatment previously. Now, his condition has deteriorated and is truly end-stage. I am not sure he is going to be able to undergo any major treatment, either dialysis or other, but we will continue to follow. cc: Ulises Hodges MD
[2019-11-25] MEDS: LEVAQUIN 500 MG/D5W 500 MG/100 ML IVPB IV SCH (15:42)
--- NOTE | 2019-11-25 19:43 | PULMONOLOGY CONSULTATION ---
DATE: 11/25/2019 REQUESTING PROVIDER: Dr. Jason Hodges. REASON FOR CONSULTATION: Acute hypoxic respiratory failure. HISTORY OF PRESENT ILLNESS: This is a 53-year-old male with a medical history of bladder cancer diagnosed 1 year ago without treatment. He presented to the ER yesterday morning with worsening weakness, dizziness, vomiting and increased petechia for 2 weeks. Initial workup in the ER revealed acute kidney injury secondary to obstruction and significant elevated potassium at 9.7. Her respiratory status has been progressively worsening since admission, and he required BiPAP at this time. He had right internal jugular Vas-Cath placement yesterday and dialysis has been started since per Dr. Gómez. The patient currently is lying in bed and appears lethargic. There is no family at the bedside. All other information is obtained from the E-chart. PAST MEDICAL HISTORY: Bladder cancer diagnosed 1 year ago but refused all treatments. PAST SURGICAL HISTORY: Denies. FAMILY HISTORY: Positive for diabetes and breast cancer. SOCIAL HISTORY: The patient smokes 1 pack a day for over 20 years, inhaled marijuana occasionally. No history of alcohol or illicit drug use. ALLERGIES: No known drug allergies. REVIEW OF SYSTEMS: Unable to be obtained as patient is lethargic and wearing a BiPAP mask. PHYSICAL EXAMINATION: Vital Signs: Temperature 97.6 degrees, blood pressure 127/49, pulse 73, respiratory rate 24, oxygen saturation 100% on BiPAP with FiO2 40% and pressure 18/5. General: Lying in bed with a BiPAP mask on with mild tachypnea but no acute distress noted. HEENT: Atraumatic, normocephalic. Trachea midline. Pupils equal, round, reactive to light. Respiratory: Mild tachypnea. Symmetrical excursion. Auscultation revealed diminished breathing sounds bilaterally. Cardiovascular: Regular rate and rhythm with S1, S2 appreciated. Gastrointestinal: Soft, slightly distended. Bowel sounds normoactive in all 4 quadrants. Extremities: Bilateral lower extremity pitting edema 2 to 3+. No cyanosis, no clubbing. Neurologic: Lethargic, not answering questions. LABORATORY DATA: White blood cells 10.35, hemoglobin 7.4, hematocrit 21.7, platelets 221,000. Sodium 140, potassium 5.7, chloride 93, carbon dioxide 17, BUN 135, creatinine 20.2, glucose 131. ProBNP 12,463. ABG: pH 7.38, pCO2 of 32, pO2 112, HC03 20.6, base excess -5.6, oxyhemoglobin 96.0 on BiPAP with FiO2 50% and pressure 18/5. IMAGING DATA: Chest x-ray this morning showed worsened atelectasis and pneumonia in the right upper lobe. CT abdomen and pelvis without contrast on 11/24/2019 showed advanced bladder carcinoma with extensive dense adenopathy including in the retroperitoneal in the left periaortic region, osseous metastatic disease, severe bilateral hydronephrosis due to obstruction of the distal ureters, constipation and possible proctitis or direct involvement of the perirectal space by tumor. ASSESSMENT: This is a 53-year-old male with a medical history of bladder cancer diagnosed 1 year ago without treatment. He has been admitted since 11/24/2019 with acute kidney injury secondary to obstruction requiring dialysis and significant hypokalemia. 1. Acute hypoxemic respiratory failure, currently on BiPAP with FiO2 50% and tolerates well. 2. Pneumonia with atelectasis. 3. Acute kidney injury secondary to obstruction with bladder cancer. Dialysis has been started since yesterday per Dr. Gómez. 4. Significant hyperkalemia improving. 5. Compensated significant anion gap metabolic acidosis with respiratory alkalosis. 6. Fluid overload. 7. Poor prognosis. PLAN: 1. Continue supplemental oxygen with BiPAP. We titrate supplemental oxygen and BiPAP settings to patient's needs according to the clinical protocol. We will monitor patient's response closely. 2. We will check proBNP. 3. Antibiotics including Levaquin and Linezolid has been ordered. 4. Would start Haldol for anxiety as needed. 5. Bronchodilators have been ordered. 6. Continue dialysis per Dr. Gómez. 7. We will follow up ABG, CBC, BMP, chest x-ray. 8. Further recommendations pending hospital course. Thank you for the courtesy of this consult. Dr. Black did the examination, evaluation, management, and orders. LOULOU did the dictation for Dr. Black according to his direction. Total evaluation time in minutes: 34. Dictated by LOULOU Frances for Nieves Black MD cc: LOULOU Frances MD [facility]
[2019-11-25] MEDS ORDERED: LEVAQUIN 500 MG/D5W 500 MG/100 ML IVPB IV SCH (20:00)
[2019-11-25] MEDS: HEPARIN SUBQ SCH (21:17)
[2019-11-25] MEDS: DILAUDID IV PRN (23:17)
[2019-11-26] MEDS: HALDOL IV PRN ×2 (00:58→12:45)
[2019-11-26] MEDS: ATIVAN IV PRN ×3 (01:48→10:12)
[2019-11-26] MEDS: XOPENEX NEB INH SCH ×7 (03:25→23:41)
[2019-11-26] MEDS: ATROVENT NEB INH SCH ×7 (03:25→23:41)
[2019-11-26 05:01] LABS: ALLEN TEST YES; BE 1.3 mmoll (-3.0-3.0); BLOOD TYPE ARTERIAL; HCO3-(ACT) 25.9 mmoll (20.0-26.0); METHB 1.5 % (0.0-1.5); O2(CT) 13.4 mL/dL (15.0-23.0); O2HB 95.2 % (95.0-99.0); PCO2(98.6) 32 mmHg (35-45); PO2(98.6) 103 mmHg (60-100); SAMPLE BLOOD; THB 9.9 g/dL (11.5-17.4); pH(98.6) 7.49 (7.35-7.45)
[2019-11-26 05:02] LABS: MODALITY NRB
[2019-11-26] MEDS: SODIUM BICARBONATE 8.4% 150 MEQ in D5W 1,000 ML IV SCH (05:46)
--- NOTE | 2019-11-26 05:49 | Diag Imaging Result Doc PS360 ---
EXAM: CHEST-1 VIEW HISTORY: SOB TECHNIQUE: Single view COMPARISON: 11/25/2019 FINDINGS: The lungs are well expanded. No change in the right jugular catheter. Cardiomegaly. There are dense infiltrates throughout the left lung and in the upper right lung. There are smaller infiltrates in the medial right base. Overall the infiltrates have slightly progressed. IMPRESSION: Mild interval worsening Electronically signed by Dev Bae 11/26/2019 5:47 AM
[2019-11-26] MEDS: LABETALOL IV PRN ×2 (05:59→20:27)
[2019-11-26 06:27] LABS: HEMATOCRIT 22.2 % (42.0-52.0); HEMOGLOBIN 7.4 g/dL (14.0-18.0); IMM GRAN# 0.06 X1000 (0.0-0.04); IMM GRAN% 0.5 % (0.0-0.5); LYMPH# 0.31 X1000 (1.2-3.4); LYMPH% 2.6 % (20.5-51.1); MCH 20.8 PG (27-31); MCHC 33.3 g/dL (33-37); MCV 62.5 FL (81-99); NEUT# 10.64 X1000 (1.4-6.5); NEUT% 90.9 % (42.2-75.2); PLT 205 X1000 (130-400); RBC 3.55 XMIL (4.7-6.1); RDW 26.1 % (11.5-14.5); WBC 11.71 X1000 (4.8-10.8)
[2019-11-26] MEDS: SOLU-MEDROL IV SCH (06:59)
[2019-11-26] MEDS: DILAUDID IV PRN (07:03)
[2019-11-26 07:04] LABS: CALCIUM 8.8 mg/dL (8.8-10.2); CREATININE 5.4 mg/dL (0.7-1.2)
[2019-11-26] MEDS ORDERED: DILAUDID IV ONE (08:04)
--- NOTE | 2019-11-26 08:17 | PROGRESS NOTE ---
DATE: 11/26/2019 SUBJECTIVE: The patient remains in the ICU, was significantly agitated overnight per nursing, requiring a non-rebreather. Nurse states that patient is trying to take this off and then his saturations would drop at that time into the 70-80s. The patient continues to complain of back pain and is more lethargic this morning. OBJECTIVE: Vital signs: Temperature 99.5 degrees, heart rate 99, blood pressure 156/79, oxygen saturation 100% on non-rebreather. General: Lethargic, difficult to arouse, does arouse to deep stimulation and opens his eyes in response. The patient is moving all extremities. Respiratory: Good respiratory effort. Decreased lung sounds in the bases. The patient remains on non-rebreather. Abdomen: Soft, nontender, nondistended. No palpable masses. Genitourinary: No suprapubic tenderness. No CVA tenderness. LABORATORY DATA: White blood cell count 11.7, hemoglobin 7.4, hematocrit 20.2, platelets 205,000. Sodium 140, potassium 5.0, chloride 100, bicarb 23, BUN 33, creatinine 5.4, glucose 143. ASSESSMENT AND PLAN: Mr. Abraham remains in the ICU due to requiring hemodialysis as well as agitation and being on a non-rebreather. The patient has known metastatic bladder cancer and refused treatment previously. The patient presented with creatinine elevated at 33, which has downtrended with dialysis. Had a long discussion with patient's daughter and sister yesterday regarding long-term management. I discussed the role of nephrostomy tube placement versus stopping dialysis. I think patient would require nephrostomy tubes to drain his kidney if the family would want to proceed. The patient's renal function seems to be improving. Electrolytes are within normal limits after dialysis the last 2 days. I think patient would need chronic dialysis due to complete obstruction of his kidneys on CT scan if elects for nonoperative treatment. I talked extensively with him yesterday. They are still discussing to try to make a decision of the next step for the patient. I do not think that nephrostomy tubes will help with his back pain and will likely only allow him to potentially get off of dialysis. We will continue to monitor from a urologic standpoint. Please call with questions or concerns. cc: MD SUSAN Chan
[2019-11-26] MEDS ORDERED: NS 2,000 ML MISC PRN (08:37)
[2019-11-26] MEDS ORDERED: HEPARIN IV PRN ×2 (08:37)
[2019-11-26] MEDS: HEPARIN SUBQ SCH ×2 (08:57→20:27)
--- NOTE | 2019-11-26 09:18 | CONSULTATION ---
DATE OF CONSULTATION: 11/25/2019 CHIEF COMPLAINTS: History of bladder cancer and acute on chronic kidney disease. HISTORY OF PRESENT ILLNESS: Mr. Abraham is a 53-year-old with history of bladder cancer, which was diagnosed back in May. The patient was having gross hematuria and underwent CT scan which showed obstructing bladder mass with left hydronephrosis. He has taken the operating room for transurethral resection of the tumor as well as attempted ureteral stent placement. The patient had resection of tumor and was unable to see his ureteral orifice. The patient had indwelling catheter inserted and was diagnosed with muscle invasive cancer. Discussed the pathology with him at followup, at which point the patient refused any treatment or referral to any other providers regarding his bladder cancer. The patient was quite adamant that he did not want to undergo any procedures and wanted to live with his cancer. Discussed with him with his overall healthiness and that he would benefit from chemotherapy and radiation, versus neoadjuvant chemotherapy and cystectomy. The patient expressed understanding and did not want to proceed with any therapies. The patient subsequently had not been seen in the office since May. In talking with family, they state that he has been acting more confused and lethargic. He states that he was taking the medication for heartworms for dogs as this was allegedly helpful for treating cancer. He recently moved away from his ex-'s home and in with his sister who noticed worsening symptoms and brought him into the emergency room yesterday. The patient was weak with dizziness and vomiting with decreased p.o. intake and inability to adequately urinate. He states that he had not urinated in over 24 hours. Lab work was obtained which showed a creatinine of 33 with a potassium of 9. The patient was found to have increased work of breathing and is admitted to the ICU. He had a Vas-Cath placed and was started on dialysis. Urology was consulted due to CT scan findings of bilateral hydronephrosis with acute kidney injury. I talked with him today. The patient is lethargic and difficult to get adequate information from. Most of the information is obtained from notes as well as talking with his family. PAST MEDICAL HISTORY: Bladder cancer. PAST SURGICAL HISTORY: Transurethral resection of bladder tumor and attempted left retrograde pyelogram. ALLERGIES: No known drug allergies. MEDICATION: No prescription medication. SOCIAL HISTORY: Smoker. Denies alcohol or illicit drug use. FAMILY HISTORY: Denies family history of malignancy. REVIEW OF SYSTEMS: A 12 point review of systems performed with all pertinent positives and negatives in HPI. PHYSICAL EXAMINATION: Vital signs: Temperature 97.6, heart rate 73, blood pressure 67184, oxygenation 100% on BiPAP. General: Alert to person and place, slightly lethargic, but arousable. HEENT: Normocephalic, atraumatic. Slight dishevelled appearing. Poor dentition. Neck: Trachea midline without any obvious masses. Respiratory: Increased work of breathing on BiPAP. Cardiovascular: Regular rhythm with tachycardia. Abdomen: Soft, nontender, nondistended. : No suprapubic tenderness. No CVA tenderness. Normal phallus and no evidence of any catheter with orthotopic meatus. Musculoskeletal: Moving all extremities. Skin: No evidence of skin lesions or rash. Neurologic: Gross motor and sensory intact. Lower Extremity: 2+ lower extremity edema. LABS: White blood cell count 14.9, hemoglobin 6.6, hematocrit 19.8, platelets 346,000. Sodium 137, potassium 9.7, chloride 79, anion gap of 47, BUN of 240, creatinine 33.3, glucose 49, calcium 8.1. IMAGING: CT of the pelvis are reviewed, which showed a thickened bladder wall that with the entirety of the bladder with evidence of a mass in the bladder itself. It seems to invade to the rectum potentially as well as the prostate. Evidence of bilateral hydronephrosis that is moderate to severe with slight thinning of the parenchyma on the left side. Evidence of lymphadenopathy that is periaortic as well as iliac. Osseous mets are also visualized ASSESSMENT AND PLAN: Mr. Abraham who presents in consultation for metastatic bladder cancer with evidence of acute kidney injury due to bilateral ureteral obstruction from tumor. I think if the patient underwent cystoscopy and ureteral stent placement that his stents would rapidly be obstructed due to the degree of tumor burden. Also discussed with him that his clinical condition is quite critical with widely metastatic disease. Concern of requiring dialysis just to allow for adequate filtration of his blood. He has extensive disease and has a poor intermodal customer service survival even with systemic therapies. Family asked many questions about a long-term prognosis and the role treatment of his bladder cancer. I told them that at this point, that removal of the bladder likely is not feasible or recommended. The patient could receive chemotherapy or immune modulation, but would have to have significant improvement in renal function. He would require placement of nephrostomy tubes. This still may not help optimize his renal function or lead to long-term comfort. The patient's daughter is currently making decisions for the patient as he continues to be altered and lethargic. She asked many questions regarding the patient's comfortable and allowing him autonomy in making decisions. The patient expressed previously that he did not want any treatment for his cancer, but the family states that he is considering proceeding with some type of therapy at this time. Truthfully, I am not sure that treatment of cancer is an option for him. However, comfort measures to assist in optimization of his renal function and pain control may be. The patient's daughter will talk with her brother regarding Mr. Abraham's long-term decisions and we will try to make a decision regarding the next course in management. I think if patient wants continued care we should proceed with placement of bilateral nephrostomy tube. This could be arranged with Radiology. And if the patient's family elects for comfort measures, we could discuss removal of dialysis catheter and allow for optimization of respiratory status. The patient continues to be on BiPAP due to overload status. Attempted catheter placement was performed yesterday, however, likely this is limited by significant mass effect of his bladder cancer invading into periureteral tissue. We will continue to monitor from a urologic standpoint. Please call with questions or concerns. cc: Nico Roberson MD [facility]OSPITALPaula
[2019-11-26] MEDS ORDERED: DILAUDID IV PRN ×2 (11:09→11:21)
--- NOTE | 2019-11-26 11:54 | SEPSIS: TISSUE PERFUSION ASSMT ---
Sepsis: Tissue Perfusion Assmt - Physical Exam Assessment Date: 11/26/19 Time Assessment Initialized: 11:25 Vital Signs: Last Vital Signs Temp 100.0 F H 11/26/19 07:44 Pulse 120 H 11/26/19 10:32 Resp 29 H 11/26/19 10:32 BP 169/120 11/26/19 10:32 Pulse Ox 100 11/26/19 10:32 Height 6 ft Weight 79.832 kg Lung Sounds: crackles Heart Sounds: Regular Capillary Refill Time: Less Than 2 Seconds Peripheral Pulse Evaluation: radial (R): 2+, radial (L): 2+, dorsalis-pedis (R): 2+, dorsalis-pedis (L): 2+, posterior tibialis (R): 2+, posterior tibialis (L): 2+ Skin Exam: pink - Alternative Fluid Bolus Bolus Option: Alternative Fluid Resuscitation Bolus for morbidly obese patients with a BMI >30, Refer to [facility] [place] Body Weight Chart for Reference. Is patient's BMI >30?: No (Patient has renal failure and volume overload. Not a candidate for fluids.) Fluid Bolus dosed using the [place] Body Weight Chart: No - Impression Impression: Tissue Perfusion Adequate (Continue antibiotics.)
[2019-11-26] MEDS: LIDODERM TOP SCH (12:45)
--- NOTE | 2019-11-26 13:38 | PROGRESS NOTE ---
DATE: 11/26/2019 SUBJECTIVE: The patient continued to remain hypoxic. He had an episode of fever as well. His pulse has been 115. He has been extremely agitated and required multiple doses of intravenous medications, including lorazepam, haloperidol and hydromorphone. Family is currently at bedside. OBJECTIVE: General: Mr. Abraham is in significant pain, has been tossing and turning. Mr. Abraham or has not been able to engage in his clinical encounter meaningfully. Vital Signs: Temperature of 100 degrees, pulse 115, respiratory rate 24, blood pressure 169/120. He is saturating 100% on 100% non-rebreather mask. HEENT: On physical examination, oral cavity is dry. Pulmonary: He has decreased air entry bilateral lung dumas with inspiratory crackles. I could not appreciate any wheeze. Cardiovascular: S1, S2 normal, tachycardic. No murmur or gallop. Abdomen: Soft. Generalized tenderness, especially hypogastric region. Hypoactive bowel sounds. Extremities: No lower extremity edema. He is drowsy and confused. Appears delirious. LABS: Suggestive of leukocytosis, hemoglobin of 7.4, platelets of 205. He also has a pCO2 of 32, suggestive of acute respiratory alkalosis. His BUN and creatinine have been decreasing. He continues to have elevated proBNP. MICROBIOLOGY: No positive microbiological data. X-RAYS: Chest x-ray suggests interval worsening with bilateral lung infiltrate. ASSESSMENT AND PLAN: 1. Acute hypoxic respiratory failure due to bilateral multifocal pneumonia. Continue intravenous linezolid and intravenous levofloxacin. He has not been able to make sputum. I may have to adjust his antibiotics based on his renal function and respiratory status. Continue inhaled ipratropium and levalbuterol inhaler, considering he is not wheezing and holding his steroids at the moment. 2. Acute kidney injury due to bilateral hydronephrosis due to obstructive uropathy due to marked adenopathy. Urology team on board and recommends radiology-guided nephrostomy tubing if aggressive measures are to be pursued. His hyperkalemia and metabolic acidosis have been improving to dialysis. I will stop intravenous bicarbonate drip and continue slow, low efficiency dialysis according to Nephrology team's recommendation. 3. Metastatic urinary bladder cancer with retroperitoneal adenopathy and diffuse bony metastasis involving pelvis, as well as lower lumbar spine. It has been a challenge treating pain considering his tenuous respiratory status. I will increase intravenous hydromorphone dose and frequency to start him on topical lidocaine. I would also start him on sublingual Levsin to help with bladder spasms, as well as bisacodyl to help with constipation. DISPOSITION: Continue to monitor patient in ICU. Plan of care discussed with the patient's son. I tried to bring up about code status to him. However, he was in a hurry and he wanted me to give patient pain medications first to make him comfortable before making any decisions. I will have to have a detailed discussion with the family about code status, as well as goals of care to ensure better understanding among different family members about his critical condition, though they do understand that he is critical considering renal failure, lung failure. TIME SPENT: 35 minutes of critical care time was spent. cc: Celestino Carrillo MD MTDD
[2019-11-26] MEDS: LEVSIN-SL SL SCH ×3 (13:43→17:16)
[2019-11-26] MEDS: DULCOLAX PR SCH ×2 (13:44→22:09)
[2019-11-26] MEDS: SODIUM CHLORIDE 0.9% INJ SCH (14:28)
[2019-11-26] MEDS: PROTONIX IV SCH (14:28)
[2019-11-26] MEDS: MORPHINE IV PRN ×2 (14:28→20:27)
--- NOTE | 2019-11-26 15:02 | PROGRESS NOTE ---
DATE: 11/26/2019 ADDENDUM: I had a detailed discussion about his medical condition and management plan with the Oncology team, Nephrology team as well as nurse practitioner of Pulmonology team, and I was also informed that the patient's family had decided to make him full code and wanted to pursue aggressive measures, including possible palliative immunotherapy in the future. Considering that, the patient may need bilateral nephrostomy tubes eventually. Currently, he is acutely hypoxic and has been extremely agitated, so I am not sending him down for that procedure. We will allow his pneumonia to improve, his hypoxia to improve, and based on that, will consider nephrostomy tube sometime early next week. Plan of care discussed with Nephrology, Oncology and Pulmonology team. I had discussion with urology team and plan is possibly nephrostomy tube tomorrow. Anesthesia team is likely planning intubation during the procedure. And he may remain intubated post - procedure. cc: Celestino Carrillo MD MTDD
[2019-11-26] MEDS ORDERED: GEODON IM PRN (17:22)
[2019-11-26] MEDS ORDERED: STERILE WATER INJ. ONE (17:34)
[2019-11-26] MEDS: ZYVOX 600 MG/D5W 600 MG/300 ML IVPB IV SCH (18:40)
--- NOTE | 2019-11-26 19:39 | HEMO/ONC CONSULTATION ---
DATE: 11/26/2019 REQUESTED BY: Hospitalist service. REASON FOR CONSULTATION: Bladder cancer, patient known. HISTORY OF PRESENT ILLNESS: Mr. Abraham is a 53-year-old male who we have seen back in June in our office for muscle invasive bladder carcinoma. The patient at that time was very hesitant to consider any chemotherapy. We had scheduled him for followup, but he no-showed his appointments. He has now presented to the [facility] with sepsis. He has now been admitted to the ICU for critical care. He is currently with rather significant renal failure and on dialysis. He also had a strikingly elevated potassium of 9.7 on presentation. He is mentally altered, but he does have family that is with him in the hospital. PAST MEDICAL HISTORY: Negative except for this bladder cancer. PAST SURGICAL HISTORY: He has had a cystoscopy previously. FAMILY HISTORY: Positive for diabetes in his sister. His mother of breast cancer at the age of 49. REVIEW OF SYSTEMS: Hard to obtain. The patient is mentally altered at this time. PHYSICAL EXAMINATION: Vital signs: Temperature 100.1 degrees, heart rate 126, respirations 18, blood pressure 177/95, O2 saturation 95% on non-rebreather. General: This is a critically ill- appearing male in his hospital bed in the ICU. He has restraints in place. He has several members at bedside. He is agitated. He is not able to answer questions appropriately. Head: Appears to be normocephalic, atraumatic. Eyes: Sclerae anicteric. Mouth: Hard to assess as he has a non-rebreather on. Cardiovascular: Tachycardia noted. Respiratory: Coarse breath sounds throughout. Gastrointestinal: Abdomen is soft. Musculoskeletal: No obvious bony abnormalities. Neurologic: Patient is not oriented. LABS AND STUDIES: White blood cells today are 11.71, hemoglobin 7.4, platelet count 205,000. Sodium 140, potassium 5.0, BUN is 33, creatinine is down to 5.4 and was previously peaked at 20.2. CT of the abdomen and pelvis without contrast on 11/24/2019 showed advanced bladder carcinoma with extensive adenopathy including in the retroperitoneum and the left periaortic region. Osseous metastatic disease. Severe bilateral hydronephrosis due to obstruction of the distal ureters. ASSESSMENT AND PLAN: 1. Bladder cancer that now is metastatic. We have reviewed again with the patient and his family today that his disease is no longer curable, and that moving forward, we would be considering palliative therapy. If the patient is able to recover and get out of the hospital, we will be happy to see him as an outpatient. We will be happy to discuss with him treatment options, which do include at this point, immunotherapy, which he may be able to tolerate. He is not a candidate for [place] therapy given his renal failure. 2. Acute hypoxic respiratory failure due to bilateral multifocal pneumonia. Management per the primary team and the critical care team. 3. Acute kidney injury due to bilateral hydronephrosis due to obstructive uropathy due to marked adenopathy. Urology is on board. He needs nephrostomy tubes. He is being followed by both Urology and Nephrology. Management per them. 4. Metastatic urinary bladder cancer with retroperitoneal adenopathy and diffuse bony metastasis. Again, as per above. We will see him as an outpatient to discuss treatment options. This will be palliative treatment. We want to thank you for consulting us. We will continue to follow along. Dictated by JAVI Sanchez for Mare Bolton MD cc: Mare Bolton MD I have seen and examined the patient. The above note reflects my history, physical exam, assessment and plan. Mare DAVIS
--- NOTE | 2019-11-26 20:08 | NEPHROLOGY PROGRESS NOTE ---
DATE: 11/26/2019 SUBJECTIVE: He is awake, moaning and moving constantly, pulling off his mask and pulling at his IVs. OBJECTIVE: Vital Signs: Blood pressure 179/103, heart rate 117, respirations 23, T-max 100.1 degrees, intake 3.8 L. Output 5.8 L. In no acute distress except as above. Skin: Warm and dry. Pupils are equal. Neck: Neck veins are distended. Heart: Regular and tachycardic. Lungs: Equal. No crackles. Abdomen: Soft, nontender. Bowel sounds present. Extremities: With trace edema. No clubbing or cyanosis. IMPRESSION: Acute kidney injury secondary to obstruction. Dialysis again today. He will need percutaneous nephrostomies if he is going to have ongoing treatment. We will continue his dialysis until a clear plan of care has been developed by the family. cc: Carlos Gómez MD
[2019-11-26] MEDS ORDERED: MORPHINE IV ONE (21:27)
[2019-11-26] MEDS ORDERED: ROBAXIN 500 MG in NS 50 ML IV PRN (21:29)
[2019-11-26] MEDS ORDERED: APRESOLINE IV PRN (22:57)
--- NOTE | 2019-11-26 23:40 | PROVIDER PROGRESS NOTE ---
Progress Note Dr. Black Progress Note/Pulmonary and or critical care Subjective: The patient is constantly restless and agitated. He keeps complaining of pain. He is on two point restraint. RN at the bedside reports that Haldol 5mg, Ativan 1mg and Dilaudid 0.5mg do not help at all. Patients son and niece are at the bedside. During my encounter, patients son states he just wants the patient to be comfortable, but later Dr. Carrillo tells me that family wants to keep patient in full code with aggressive measures. Input was appreciated from Dr. Carrillo and other teams on the case. Objective: Vital Signs: T 100.1 (fever in last 24 hours), SC 119, RR 20, BP 176/112 and SaO2 94% on PRB 80%. I/O: -2014ml. Physical Examination: General: Restless and agitated. On 2 point restraint. HEENT: Normocephalic. Trachea midline. Mucosa pink and dry. Chest: Mild tachypnea. No increased work of breathing. Symmetrical excursion. Diminished air entry with inspiratory crackles bilaterally. CVS: Tachycardia. S1 and S2 appreciated. Abdomen: Soft. Non-distended. Bowel sounds present. Generalized tenderness. Extremities: No edema. No cyanosis. No clubbing. Neuro: Restless and agitated. Not answering any questions or follow any commands. Labs and Radiology: Laboratory Results 11/26/19 11/26/19 11/26/19 00:18 04:00 04:00 WBC 11.71 H RBC 3.55 L Hgb 7.4 L Hct 22.2 L MCV 62.5 L MCH 20.8 L MCHC 33.3 RDW Std Deviation 26.1 H Plt Count 205 MPV Not Reportable Immature Gran % (Auto) 0.5 Neut % (Auto) 90.9 H Lymph % (Auto) 2.6 L [place] % (Auto) 6.0 Eos % (Auto) 0.0 Baso % (Auto) 0.0 Immature Gran # (Auto) 0.06 H Neut # (Auto) 10.64 H Lymph # (Auto) 0.31 L [place] # (Auto) 0.70 H Eos # (Auto) 0.00 Baso # (Auto) 0.00 PTT (Actin FS) Specimen Type Sample Site pH pCO2 pO2 HCO3 Base Excess Oxyhemoglobin ABG O2 Sat (Calculated) ABG O2 Saturation ABG Carboxyhemoglobin ABG Methemoglobin Tramaine Test A-a O2 Difference Total Hemoglobin Lactate Liter Flow Blood Gas Modality FiO2 % Sodium 140 Potassium 5.0 Chloride 100 Carbon Dioxide 23 L Anion Gap 17 BUN 33 H D Creatinine 5.4 H Estimated GFR/1.73 m2 11 BUN/Creatinine Ratio 6 Glucose 143 H POC Glucose 130 H Calculated Osmolality 289 Calcium 8.8 11/26/19 11/26/19 11/26/19 04:50 05:04 08:26 WBC RBC Hgb Hct MCV MCH MCHC RDW Std Deviation Plt Count MPV Immature Gran % (Auto) Neut % (Auto) Lymph % (Auto) [place] % (Auto) Eos % (Auto) Baso % (Auto) Immature Gran # (Auto) Neut # (Auto) Lymph # (Auto) [place] # (Auto) Eos # (Auto) Baso # (Auto) PTT (Actin FS) Specimen Type ARTERIAL Sample Site R RADIAL pH 7.49 H pCO2 32 L pO2 103 H HCO3 25.9 Base Excess 1.3 Oxyhemoglobin 95.2 ABG O2 Sat (Calculated) 13.4 L ABG O2 Saturation 97.0 ABG Carboxyhemoglobin 0.40 ABG Methemoglobin 1.5 Tramaine Test YES A-a O2 Difference 570.0 Total Hemoglobin 9.9 L Lactate 1.90 Liter Flow 15.0 Blood Gas Modality NRB FiO2 % 100.0 Sodium Potassium Chloride Carbon Dioxide Anion Gap BUN Creatinine Estimated GFR/1.73 m2 BUN/Creatinine Ratio Glucose POC Glucose 133 H 123 H Calculated Osmolality Calcium 11/26/19 11/26/19 09:00 20:32 WBC RBC Hgb Hct MCV MCH MCHC RDW Std Deviation Plt Count MPV Immature Gran % (Auto) Neut % (Auto) Lymph % (Auto) [place] % (Auto) Eos % (Auto) Baso % (Auto) Immature Gran # (Auto) Neut # (Auto) Lymph # (Auto) [place] # (Auto) Eos # (Auto) Baso # (Auto) PTT (Actin FS) 32.3 Specimen Type Sample Site pH pCO2 pO2 HCO3 Base Excess Oxyhemoglobin ABG O2 Sat (Calculated) ABG O2 Saturation ABG Carboxyhemoglobin ABG Methemoglobin Tramaine Test A-a O2 Difference Total Hemoglobin Lactate Liter Flow Blood Gas Modality FiO2 % Sodium Potassium Chloride Carbon Dioxide Anion Gap BUN Creatinine Estimated GFR/1.73 m2 BUN/Creatinine Ratio Glucose POC Glucose 104 Calculated Osmolality Calcium Assessment: Acute hypoxemic respiratory failure. Bilateral multifocal pneumonia with atelectasis. CXR today shows mild interval worsening with bilateral lung infiltrates. Acute renal failure secondary to obstruction with bladder cancer. On dialysis per Dr. Gómez. Alkalemia with AG metabolic acidosis (improving), metabolic alkalosis and respiratory alkalosis. Bladder cancer, diagnosed one year ago, but no treatment pursued. Possibly nephrostomy tube placement tomorrow. Poor prognosis. Plan: Continue supplemental oxygen. We titrated supplemental oxygen to the patients needs for clinical protocols. Currently patient stays on NRB. We will keep closely monitoring patients clinical response. Lidocaine patch, sublingual Levsin, Morphine and Geodon started per Dr. Carrillo for pain and anxiety control. Continue antibiotics including Levaquin and Zyvox. Continue bronchodilators. Palliative care consult initiated. Continue GI and DVT prophylaxis. Evaluation time in minutes: 34 minutes
[2019-11-27] MEDS: LOPRESSOR IV SCH ×4 (00:07→17:46)
[2019-11-27] MEDS: MORPHINE IV PRN ×3 (01:27→18:46)
[2019-11-27] MEDS: ATIVAN IV PRN ×2 (01:30→05:33)
[2019-11-27] MEDS: XOPENEX NEB INH SCH ×6 (03:40→23:42)
[2019-11-27] MEDS: ATROVENT NEB INH SCH ×6 (03:40→23:42)
[2019-11-27 04:59] LABS: ALLEN TEST YES; BE -3.2 mmoll (-3.0-3.0); BLOOD TYPE ARTERIAL; HCO3-(ACT) 22.4 mmoll (20.0-26.0); METHB 1.4 % (0.0-1.5); MODALITY PRB; O2HB 95.7 % (95.0-99.0); PCO2(98.6) 30 mmHg (35-45); PO2(98.6) 178 mmHg (60-100); SAMPLE BLOOD; SAO2 97.7 % (95.0-100.0); THB 8.6 g/dL (11.5-17.4); pH(98.6) 7.44 (7.35-7.45)
[2019-11-27 06:02] LABS: BASO# 0.01 X1000 (0.0-0.2); BASO% 0.1 % (0.0-0.8); EOS# 0.01 X1000 (0.0-0.7); EOS% 0.1 % (0.0-10.0); HEMATOCRIT 24.8 % (42.0-52.0); IMM GRAN# 0.17 X1000 (0.0-0.04); IMM GRAN% 1.1 % (0.0-0.5); LYMPH# 0.87 X1000 (1.2-3.4); LYMPH% 5.6 % (20.5-51.1); MCH 20.4 PG (27-31); MCHC 32.3 g/dL (33-37); MCV 63.3 FL (81-99); MONO% 5.7 % (1.7-9.3); NEUT% 87.4 % (42.2-75.2); PLT 297 X1000 (130-400); RBC 3.92 XMIL (4.7-6.1); RDW 26.2 % (11.5-14.5); WBC 15.66 X1000 (4.8-10.8)
[2019-11-27 06:07] LABS: INR 1.25; PROTIME 15.9 Seconds (11.0-16.0)
[2019-11-27 06:08] LABS: PTT 30.3 Seconds (22.3-41.8)
[2019-11-27 06:23] LABS: CALCIUM 9.2 mg/dL (8.8-10.2); CREATININE 3.6 mg/dL (0.7-1.2); POTASSIUM 5.3 mmol/L (3.5-5.1)
[2019-11-27 06:37] LABS: LYMPHS 6 % (21-51); SEGS 86 % (42-75)
--- NOTE | 2019-11-27 06:59 | Diag Imaging Result Doc PS360 ---
EXAM: CHEST-1 VIEW 11/27/2019 HISTORY: SOB TECHNIQUE: AP portable at 0518 COMMENT: There is a right internal jugular central venous catheter with its tip just above the right atrium. There is alveolar opacity bilaterally which has improved slightly particularly with regard to the left lower lobe since the previous study of 11/26/2019. IMPRESSION: Improved pulmonary edema. Electronically signed by Jacky Christianson 11/27/2019 6:57 AM
[2019-11-27] MEDS: D50W SYRINGE IV PRN ×2 (08:08→11:01)
[2019-11-27] MEDS: LIDODERM TOP SCH (08:10)
[2019-11-27] MEDS: DULCOLAX PR SCH ×2 (08:11→20:15)
[2019-11-27] MEDS: LEVSIN-SL SL SCH ×3 (08:11→17:44)
[2019-11-27] MEDS: HEPARIN SUBQ SCH ×3 (08:11→20:15)
[2019-11-27] MEDS ORDERED: NS 250 ML ONE (08:15)
[2019-11-27] MEDS ORDERED: XYLOCAINE 1% ONE (08:15)
[2019-11-27] MEDS ORDERED: XYLOCAINE 2% JELLY ONE (08:57)
[2019-11-27] MEDS ORDERED: AMIDATE ONE (08:59)
[2019-11-27] MEDS ORDERED: XYLOCAINE-MPF 2% ONE (08:59)
[2019-11-27] MEDS ORDERED: QUELICIN (DOSE) ONE (08:59)
[2019-11-27] MEDS ORDERED: NORCURON ONE (09:36)
--- NOTE | 2019-11-27 09:47 | EKG Report ---
Test Performed on : 11/27/2019 06:24:53 AM Test Reason : Follow up QTc Blood Pressure : / mmHG Vent. Rate : 112 BPM Atrial Rate : 112 BPM P-R Int : 122 ms QRS Dur : 086 ms QT Int : 330 ms P-R-T Axes : 073 074 070 degrees QTc Int : 450 ms Sinus tachycardia. Minimal voltage criteria for LVH, may be normal variant Borderline ECG When compared with ECG of 24-NOV-2019 10:43, (Unconfirmed) Sinus rhythm. has replaced Wide QRS rhythm. Confirmed by Aren Downs MD ([id number]) on 11/27/2019 11:01:57 AM
[2019-11-27] MEDS ORDERED: LUBRIFRESH PM OPH OINTMENT ONE (09:56)
[2019-11-27] MEDS ORDERED: VERSED ONE (10:02)
[2019-11-27] MEDS ORDERED: BREVIBLOC ONE (10:09)
[2019-11-27] MEDS ORDERED: SOLU-CORTEF ONE (10:12)
[2019-11-27] MEDS: DIPRIVAN 1% 1,000 MG/100 ML BOTTLE IV SCH ×4 (11:12→23:32)
--- NOTE | 2019-11-27 11:17 | Diag Imaging Result Doc PS360 ---
EXAM: NEPHROSTOGRAM NEW ACCESS 11/27/2019 HISTORY: HYDRONEPHROSIS TECHNIQUE: Left percutaneous nephrostomy with ultrasonographic and fluoroscopic guidance. COMMENT: Consent had been previously obtained from the patient's family. The procedure was performed in the operating room. Following sterile preparation the skin posteriorly and administration 1% lidocaine to the skin and deeper soft tissues, the lower pole calyx was punctured and subsequent opacification of the system and passage of the 0.18 guidewire was performed. There is considerable extravasation of contrast. The tract was dilated to 11-E[place] and subsequently a 10.2-[place] cope loop nephrostomy catheter was placed in the lower renal pelvis. This is secured to the skin with suture and the adhesive device provided with catheter. IMPRESSION: Successful left percutaneous nephrostomy placement. Electronically signed by Jacky Christianson 11/27/2019 11:15 AM
--- NOTE | 2019-11-27 11:18 | Diag Imaging Result Doc PS360 ---
EXAM: NEPHROSTOGRAM NEW ACCESS 11/26/2019 HISTORY: Bilateral Hydronephrosis TECHNIQUE: Right percutaneous nephrostomy placement with ultrasonographic and fluoroscopic guidance COMMENT: Consent had been previously obtained from the patient's family. Following sterile preparation the skin and administration 1% lidocaine to the skin and deeper soft tissues, the lower pole calyx was punctured under ultrasonographic guidance and subsequent placement of guidewires and dilatation was performed under fluoroscopic guidance. The 10.2-[place] catheter was secured in the renal pelvis with its self retaining ligature and also to the skin with a suture and the adhesive device provided with catheter. IMPRESSION: Successful placement of percutaneous nephrostomy. Electronically signed by Jacky Christianson 11/27/2019 11:16 AM
--- NOTE | 2019-11-27 11:24 | PROGRESS NOTE ---
DATE: 11/27/2019 INTERVAL HISTORY: No acute events overnight. Mr. Abraham required multiple doses of lorazepam, haloperidol, and morphine to help with his pain. He remained agitated in the morning time. There were multiple family members at bedside. I discussed with them about his critical condition, possibly need for intubation even after surgery, pneumonia, metastatic cancer, poor prognosis, and I answered all of their questions. Mr. Abraham appears a little agitated and is not able to participate in the clinical encounter meaningfully. VITALS: Temperature 98.9 degrees, pulse 104, respiratory rate 19, blood pressure 174/89. He is saturating 100% on 80% non-rebreather mask. PHYSICAL EXAMINATION: He is agitated, in 4 point restraints. He has crackles in bilateral lung dumas, especially inframammary. S1, S2 normal, tachycardic, no murmur or gallop. Abdomen is soft. He has generalized tenderness, especially lower quadrant. Active bowel sounds. He does not have any lower extremity edema. He does not have his urine catheter. He is drowsy but arousable. He is following simple commands like opening mouth but is fidgety due to pain. I could not obtain meaningful history or assess his neurological function appropriately due to constant restlessness. DATA: Input and output suggest he had 1 incontinent void. Lab suggestive off WBC of 15,000, hemoglobin 8, platelet count 297,000. He has oxygenation of 178 on 80% non-rebreather. He has decreasing BUN and creatinine. His potassium was 5.3. Microbiology no new data. IMAGING: Chest x-ray suggests improvement in pulmonary edema. ASSESSMENT AND PLAN: 1. Acute hypoxic respiratory failure due to bilateral multifocal pneumonia. Continue intravenous linezolid and intravenous levofloxacin. Blood culture has not shown any growth to date. Continue inhaled levalbuterol and ipratropium nebulization. 2. Acute kidney injury due to bilateral hydronephrosis due to obstructive uropathy due to marked intraabdominal and pelvic adenopathy blocking ureters. Urology team is coordinating with Radiology team about putting in nephrostomy tubes. His hyperkalemia and metabolic acidosis have been stable. I will follow up his kidney function closely. He has been receiving SLED per Nephrology recommendation. 3. Metastatic urinary bladder cancer with intraabdominal adenopathy and diffuse metastasis involving pelvis as well as lower lumbar spine. The patient was diagnosed with urinary bladder cancer at least a year ago, however, had refused to undergo treatment. Now, the patient's sister and the other family members have decided to pursue aggressive measures. Continue sublingual Levsin for bladder spasm, intravenous morphine, intravenous haloperidol for agitation and bisacodyl to help with the constipation. Once his acute issues resolve and if he would be willing, he could be considered for possibly immunotherapy by oncology team in future outpatient. 4. Acute encephalopathy, likely in the setting of ongoing sepsis due to acute hypoxic sepsis due to multifocal pneumonia as well as intractable pelvic pain. I will continue to address it with intravenous haloperidol, as needed ziprasidone, lorazepam and intravenous morphine. DISPOSITION: I will continue to monitor patient in ICU. 35 minutes of critical care time has been spent. Radiology team is planning an bilateral nephrostomy tubes later today and the plan is to perform this procedure in the operating room and Anesthesia team is likely planning intubation. The patient may remain intubated post surgery considering he has multifocal pneumonia and is on 80% FiO2 on non rebreather mask. cc: Celestino Carrillo MD MTDD
--- NOTE | 2019-11-27 12:30 | Diag Imaging Result Doc PS360 ---
EXAM: CHEST/ABD TUBE PLACEMENT 11/27/2019 HISTORY: OG tube placement TECHNIQUE: AP portable upright at 1220 COMMENT: There is an OG tube with its tip in the stomach. There is an endotracheal tube with its tip at thoracic inlet. Compared to 11/27/2019 at 0518 considering differences in technique there has been very little change. There continues to be alveolar opacity in the upper lobes particularly the left upper lobe. IMPRESSION: OG tube in the stomach. Electronically signed by Jacky Christianson 11/27/2019 12:27 PM
[2019-11-27] MEDS: PROTONIX IV SCH (14:41)
[2019-11-27] MEDS: SODIUM CHLORIDE 0.9% INJ SCH (14:41)
[2019-11-27] MEDS: LEVAQUIN 500 MG/D5W 500 MG/100 ML IVPB IV SCH (14:42)
[2019-11-27] MEDS: ZYVOX 600 MG/D5W 600 MG/300 ML IVPB IV SCH (17:46)
--- NOTE | 2019-11-27 18:09 | PROVIDER PROGRESS NOTE ---
Progress Note Dr. Black Progress Note/Pulmonary and or critical care Subjective: The patient underwent percutaneous nephrostomy placement per Dr. Roberson this morning. He is just transferred back to ICU. He stays intubated. Diprivan drip already starts. Input was appreciated from Dr. Carrillo and other teams on the case. Objective: Vital Signs: T 98.4 (Low-grade fever in last 24 hours), MA 125, RR 18, BP 163/107 and SaO2 99% on AC 10, 40%, 700, 5. I/O: -2550ml. Physical Examination: General: Intubated. No acute distress noted. HEENT: Normocephalic. Trachea midline. ET tube in place. Mucosa pink and dry. Chest: Mechanically ventilated. Symmetrical excursion. Diminished air entry in the right lug field with inspiratory crackles bibasilarly. CVS: Tachycardia. S1 and S2 appreciated. Abdomen: Soft. Non-distended. Bowel sounds present. Generalized tenderness. Extremities: No edema. No cyanosis. No clubbing. Neuro: Sedated. Responsive to tactile stimuli. Labs and Radiology: Laboratory Results 11/26/19 11/27/19 11/27/19 20:32 01:38 04:48 WBC RBC Hgb Hct MCV MCH MCHC RDW Std Deviation Plt Count MPV Immature Gran % (Auto) Neut % (Auto) Lymph % (Auto) [place] % (Auto) Eos % (Auto) Baso % (Auto) Immature Gran # (Auto) Neut # (Auto) Lymph # (Auto) [place] # (Auto) Eos # (Auto) Baso # (Auto) Segmented Neutrophils Lymphocytes Unidentified Cells PT INR PTT (Actin FS) Specimen Type ARTERIAL Sample Site R RADIAL pH 7.44 pCO2 30 L pO2 178 H HCO3 22.4 Base Excess -3.2 L Oxyhemoglobin 95.7 ABG O2 Sat (Calculated) 12.0 L ABG O2 Saturation 97.7 ABG Carboxyhemoglobin 0.60 ABG Methemoglobin 1.4 Tramaine Test YES A-a O2 Difference 355.0 Total Hemoglobin 8.6 L Lactate 1.60 Liter Flow 15.0 Blood Gas Modality PRB FiO2 % 80.0 Sodium Potassium Chloride Carbon Dioxide Anion Gap BUN Creatinine Estimated GFR/1.73 m2 BUN/Creatinine Ratio Glucose POC Glucose 104 82 Calculated Osmolality Calcium 11/27/19 11/27/19 11/27/19 05:00 05:00 05:00 WBC 15.66 H RBC 3.92 L Hgb 8.0 L Hct 24.8 L MCV 63.3 L MCH 20.4 L MCHC 32.3 L RDW Std Deviation 26.2 H Plt Count 297 D MPV Not Reportable Immature Gran % (Auto) 1.1 H Neut % (Auto) 87.4 H Lymph % (Auto) 5.6 L [place] % (Auto) 5.7 Eos % (Auto) 0.1 Baso % (Auto) 0.1 Immature Gran # (Auto) 0.17 H Neut # (Auto) 13.70 H Lymph # (Auto) 0.87 L [place] # (Auto) 0.90 H Eos # (Auto) 0.01 Baso # (Auto) 0.01 Segmented Neutrophils 86 H Lymphocytes 6 L Unidentified Cells 8.0 PT 15.9 INR 1.25 PTT (Actin FS) 30.3 Specimen Type Sample Site pH pCO2 pO2 HCO3 Base Excess Oxyhemoglobin ABG O2 Sat (Calculated) ABG O2 Saturation ABG Carboxyhemoglobin ABG Methemoglobin Tramaine Test A-a O2 Difference Total Hemoglobin Lactate Liter Flow Blood Gas Modality FiO2 % Sodium 141 Potassium 5.3 H Chloride 105 Carbon Dioxide 20 L Anion Gap 16 BUN 31 H Creatinine 3.6 H Estimated GFR/1.73 m2 18 BUN/Creatinine Ratio 9 Glucose 73 POC Glucose Calculated Osmolality 286 Calcium 9.2 11/27/19 11/27/19 11/27/19 08:02 08:43 11:00 WBC RBC Hgb Hct MCV MCH MCHC RDW Std Deviation Plt Count MPV Immature Gran % (Auto) Neut % (Auto) Lymph % (Auto) [place] % (Auto) Eos % (Auto) Baso % (Auto) Immature Gran # (Auto) Neut # (Auto) Lymph # (Auto) [place] # (Auto) Eos # (Auto) Baso # (Auto) Segmented Neutrophils Lymphocytes Unidentified Cells PT INR PTT (Actin FS) Specimen Type Sample Site pH pCO2 pO2 HCO3 Base Excess Oxyhemoglobin ABG O2 Sat (Calculated) ABG O2 Saturation ABG Carboxyhemoglobin ABG Methemoglobin Tramaine Test A-a O2 Difference Total Hemoglobin Lactate Liter Flow Blood Gas Modality FiO2 % Sodium Potassium Chloride Carbon Dioxide Anion Gap BUN Creatinine Estimated GFR/1.73 m2 BUN/Creatinine Ratio Glucose POC Glucose 58 L 84 54 L Calculated Osmolality Calcium 11/27/19 11/27/19 11/27/19 11:18 16:07 16:55 WBC RBC Hgb Hct MCV MCH MCHC RDW Std Deviation Plt Count MPV Immature Gran % (Auto) Neut % (Auto) Lymph % (Auto) [place] % (Auto) Eos % (Auto) Baso % (Auto) Immature Gran # (Auto) Neut # (Auto) Lymph # (Auto) [place] # (Auto) Eos # (Auto) Baso # (Auto) Segmented Neutrophils Lymphocytes Unidentified Cells PT INR PTT (Actin FS) Specimen Type Sample Site pH pCO2 pO2 HCO3 Base Excess Oxyhemoglobin ABG O2 Sat (Calculated) ABG O2 Saturation ABG Carboxyhemoglobin ABG Methemoglobin Tramaine Test A-a O2 Difference Total Hemoglobin Lactate Liter Flow Blood Gas Modality FiO2 % Sodium Potassium 5.1 Chloride Carbon Dioxide Anion Gap BUN Creatinine Estimated GFR/1.73 m2 BUN/Creatinine Ratio Glucose POC Glucose 156 H D 84 Calculated Osmolality Calcium Assessment: Acute hypoxemic respiratory failure. Electively intubated secondary to percutaneous nephrostomy placement. Bilateral multifocal pneumonia with atelectasis. CXR today shows improved pulmonary edema. Acute renal failure secondary to obstruction with bladder cancer. On dialysis per Dr. Gómez. Compensated AG metabolic acidosis (improving) with metabolic alkalosis and respiratory alkalosis. Bladder cancer, diagnosed one year ago, but no treatment pursued. s/p percutaneous nephrostomy placement this morning. Poor prognosis. Plan: We checked Ventilation and titrated to the patients needs per clinical protocols. We will keep closely monitoring patients clinical response. We titrated Sedative (Diprivan) to the patients needs per clinical protocols. We will keep closely monitoring patients clinical response. Continue antibiotics including Levaquin and Zyvox. Continue bronchodilators. Continue GI and DVT prophylaxis. Evaluation time in minutes: 32 minutes
--- NOTE | 2019-11-27 18:14 | PROGRESS NOTE ---
DATE: 11/27/2019 SUBJECTIVE: I am seeing Mr. Abraham postoperatively. He underwent bilateral percutaneous nephrostomy with ultrasonographic fluoroscopic guidance. He was intubated during the surgery. He remains intubated. I am seeing him in the ICU right now. He is on intravenous propofol, continuous drip. OBJECTIVE: Vital Signs: He is saturating 97% on 30% FiO2. ASSESSMENT/PLAN: I have started him on NG tube feeds for nutrition. I checked his ventilator settings, and he is on a tidal volume of 700, respiratory rate of 10, FiO2 of 30% and PEEP of 5. I will discuss with the sign out clerk regarding the need to go down on tidal volume. cc: Celestino Carrillo MD
[2019-11-28] MEDS: LOPRESSOR IV SCH ×4 (00:15→16:53)
[2019-11-28] MEDS: MORPHINE IV PRN ×5 (00:43→20:17)
[2019-11-28] MEDS: ATROVENT NEB INH SCH ×6 (03:22→23:17)
[2019-11-28] MEDS: XOPENEX NEB INH SCH ×6 (03:22→23:17)
[2019-11-28] MEDS: DIPRIVAN 1% 1,000 MG/100 ML BOTTLE IV SCH ×8 (03:38→21:28)
[2019-11-28 04:26] LABS: ALLEN TEST YES; BLOOD TYPE ARTERIAL; HCO3-(ACT) 24.8 mmoll (20.0-26.0); METHB 0.8 % (0.0-1.5); O2(CT) 11.6 mL/dL (15.0-23.0); PCO2(98.6) 31 mmHg (35-45); PO2(98.6) 54 mmHg (60-100); SAMPLE BLOOD; SAO2 91.8 % (95.0-100.0); SRATE 10 BPM; THB 9.1 g/dL (11.5-17.4); TVOL 500 mL; pH(98.6) 7.48 (7.35-7.45)
[2019-11-28 04:30] LABS: MODALITY VENTILATOR
[2019-11-28 06:46] LABS: BASO# 0.01 X1000 (0.0-0.2); BASO% 0.1 % (0.0-0.8); EOS# 0.06 X1000 (0.0-0.7); EOS% 0.4 % (0.0-10.0); HEMOGLOBIN 7.9 g/dL (14.0-18.0); IMM GRAN# 0.21 X1000 (0.0-0.04); IMM GRAN% 1.3 % (0.0-0.5); LYMPH# 1.59 X1000 (1.2-3.4); LYMPH% 10.1 % (20.5-51.1); MCH 20.5 PG (27-31); MCHC 31.6 g/dL (33-37); MCV 64.8 FL (81-99); MONO# 0.94 X1000 (0.11-0.59); NEUT# 12.89 X1000 (1.4-6.5); NEUT% 82.1 % (42.2-75.2); PLT 303 X1000 (130-400); RBC 3.86 XMIL (4.7-6.1); RDW 26.2 % (11.5-14.5)
[2019-11-28 06:58] LABS: ALBUMIN 3.2 g/dL (3.5-5.0); CALCIUM 9.2 mg/dL (8.8-10.2); CREATININE 3.2 mg/dL (0.7-1.2); MAGNESIUM 2.1 mg/dL (1.5-2.7); POTASSIUM 4.5 mmol/L (3.5-5.1)
--- NOTE | 2019-11-28 07:06 | Diag Imaging Result Doc PS360 ---
EXAM: CHEST-1 VIEW 11/28/2019 HISTORY: SOB TECHNIQUE: AP portable at 0515 COMMENT: There has been considerable improvement in the opacities present in the left lung and right upper lobe since 11/27/2019. There is still some alveolar opacity in the left lower lobe behind the heart. The heart size has diminished. There is an endotracheal tube with its tip in the thoracic inlet and an NG tube with its tip below the diaphragm. There is a granuloma in the right lower lobe. There is a large bore right internal jugular catheter with its tip just above the right atrium. IMPRESSION: Improved pulmonary edema. Electronically signed by Jacky Christianson 11/28/2019 7:04 AM
[2019-11-28] MEDS: LEVSIN-SL SL SCH (08:43)
[2019-11-28] MEDS: HEPARIN SUBQ SCH ×2 (08:58→20:16)
[2019-11-28] MEDS: LIDODERM TOP SCH (08:58)
[2019-11-28] MEDS: DULCOLAX PR SCH ×2 (08:58→20:17)
[2019-11-28] MEDS: PROTONIX IV SCH (13:36)
--- NOTE | 2019-11-28 16:00 | PROGRESS NOTE ---
DATE: 11/28/2019 INTERVAL HISTORY: Patient remains intubated and sedated after procedure for nephrostomy tube placement yesterday. Remains afebrile. Blood pressure is stable. No acute events overnight. REVIEW OF SYSTEMS: Unable to obtain secondary to patient's mental status. LABS: WBC 15.7, hemoglobin 7.9, hematocrit 25.0, platelets 303,000. ABG with pH 7.48, pCO2 of 31, PO2 of 54, on the ventilator with 30% oxygen. Sodium 144, potassium 4.5, BUN 39, creatinine 3.2, glucose 85. IMAGING: Chest x-ray with improved pulmonary edema. VITALS: T-max 99.4 degrees, pulse 113, respirations 20, blood pressure 124/79, O2 saturation 96% on ventilator. PHYSICAL EXAMINATION: General: No acute distress. Intubated and sedated. HEENT: Normocephalic, atraumatic. ET and OG tubes in place. Cardiovascular: Mildly tachycardic but regular. No murmurs noted. Pulmonary: A few scattered rhonchi but pretty good air entry. No wheezing. Abdomen: Soft, nontender. Decreased bowel sounds are noted. Bilateral nephrostomy tubes noted with bloody urine draining, left more bloody than right. Extremities: Peripheral pulses intact. No clubbing or cyanosis. Neurologic: The patient is intubated but arouses somewhat to voice. Does not really follow commands but moves his head some in response to voice and moves all them spontaneously. Psychiatric: Sedated. ASSESSMENT AND PLAN: 1. Acute hypoxic respiratory failure, bilateral pneumonia. Patient on Zyvox and Levaquin. Still requiring some oxygen but pretty stable on the ventilator right now. Actually on less oxygen now than what he was prior to intubation. Pulmonology following. We will monitor. Continue nebulizer treatments as well. 2. Metastatic urinary bladder cancer with ureter obstruction and multiple bone metastases as well as intraabdominal adenopathy. The patient was diagnosed a year or more ago but refused treatment at that time. He came back in with the above issues and significant obstruction. He is now with nephrostomy tubes. Urology following. 3. Acute kidney injury due to bilateral hydronephrosis related to above noted obstruction. Creatinine was markedly elevated on admission up to 33.3. With nephrostomy tube placement and other conservative treatments, actually improved at 3.2. Continue to monitor. Uncertain what the patient will desire as far as treatment goes. His family wants everything done but he has been fairly confused most of the time that he has been here. 4. Metabolic encephalopathy, likely due to underlying pneumonia causing sepsis as well as malignancy. Currently intubated and sedated. He was pretty significantly agitated and confused prior to intubation. We will begin reassessing once he is extubated.
[2019-11-28] MEDS: ZYVOX 600 MG/D5W 600 MG/300 ML IVPB IV SCH (18:08)
--- NOTE | 2019-11-28 19:42 | PROVIDER PROGRESS NOTE ---
Progress Note Dr. Black Progress Note/Pulmonary and or critical care Subjective: The patient stays intubated. He has tachycardia with heart rate up to 120s. He is on NG tube feeding. He has cough during my encounter. AG metabolic acidosis worsened today. No family is at the bedside. Input was appreciated from Dr. Mukherjee and other teams on the case. Objective: Vital Signs: (no fever in last 24 hours), MT 126, RR 22, BP 132/81 and SaO2 96% on AC 10, 30%, 500, 5. I/O: -2230ml. Physical Examination: General: Intubated. No acute distress noted. Bilateral nephrostomy tubes noted with half full bloody urine in the right one and some in the left one. HEENT: Normocephalic. Trachea midline. ET tube in place. Mucosa pink and dry. Chest: Mechanically ventilated. Symmetrical excursion. Diminished air entry in the right lug field with inspiratory crackles bibasilarly. CVS: Tachycardia. S1 and S2 appreciated. Abdomen: Soft. Non-distended. Bowel sounds present. Generalized tenderness. Extremities: No edema. No cyanosis. No clubbing. Neuro: Sedated. Responsive to tactile stimuli. Labs and Radiology: Laboratory Results 11/27/19 11/28/19 11/28/19 22:04 01:07 04:20 WBC RBC Hgb Hct MCV MCH MCHC RDW Std Deviation Plt Count MPV Immature Gran % (Auto) Neut % (Auto) Lymph % (Auto) [place] % (Auto) Eos % (Auto) Baso % (Auto) Immature Gran # (Auto) Neut # (Auto) Lymph # (Auto) [place] # (Auto) Eos # (Auto) Baso # (Auto) Specimen Type ARTERIAL Sample Site R RADIAL pH 7.48 H pCO2 31 L pO2 54 L HCO3 24.8 Base Excess 0.0 Oxyhemoglobin 90.0 L ABG O2 Sat (Calculated) 11.6 L ABG O2 Saturation 91.8 L ABG Carboxyhemoglobin 1.20 ABG Methemoglobin 0.8 Tramaine Test YES A-a O2 Difference 121.0 Total Hemoglobin 9.1 L Lactate 1.60 Blood Gas Modality VENTILATOR Vent Mode A/C Spontaneous Rate 10 FiO2 % 30.0 Tidal Volume 500 PEEP 5.0 Sodium Potassium Chloride Carbon Dioxide Anion Gap BUN Creatinine Estimated GFR/1.73 m2 BUN/Creatinine Ratio Glucose POC Glucose 83 96 Calculated Osmolality Calcium Phosphorus Magnesium Albumin 11/28/19 11/28/19 11/28/19 04:20 04:20 06:15 WBC 15.70 H RBC 3.86 L Hgb 7.9 L Hct 25.0 L MCV 64.8 L MCH 20.5 L MCHC 31.6 L RDW Std Deviation 26.2 H Plt Count 303 MPV Not Reportable Immature Gran % (Auto) 1.3 H Neut % (Auto) 82.1 H Lymph % (Auto) 10.1 L [place] % (Auto) 6.0 Eos % (Auto) 0.4 Baso % (Auto) 0.1 Immature Gran # (Auto) 0.21 H Neut # (Auto) 12.89 H Lymph # (Auto) 1.59 [place] # (Auto) 0.94 H Eos # (Auto) 0.06 Baso # (Auto) 0.01 Specimen Type Sample Site pH pCO2 pO2 HCO3 Base Excess Oxyhemoglobin ABG O2 Sat (Calculated) ABG O2 Saturation ABG Carboxyhemoglobin ABG Methemoglobin Tramaine Test A-a O2 Difference Total Hemoglobin Lactate Blood Gas Modality Vent Mode Spontaneous Rate FiO2 % Tidal Volume PEEP Sodium 144 Potassium 4.5 Chloride 103 Carbon Dioxide 22 L Anion Gap 19 BUN 39 H Creatinine 3.2 H Estimated GFR/1.73 m2 21 BUN/Creatinine Ratio 12 Glucose 94 POC Glucose 91 Calculated Osmolality 296 Calcium 9.2 Phosphorus 4.0 Magnesium 2.1 Albumin 3.2 L 11/28/19 11/28/19 11/28/19 07:52 11:17 15:46 WBC RBC Hgb Hct MCV MCH MCHC RDW Std Deviation Plt Count MPV Immature Gran % (Auto) Neut % (Auto) Lymph % (Auto) [place] % (Auto) Eos % (Auto) Baso % (Auto) Immature Gran # (Auto) Neut # (Auto) Lymph # (Auto) [place] # (Auto) Eos # (Auto) Baso # (Auto) Specimen Type Sample Site pH pCO2 pO2 HCO3 Base Excess Oxyhemoglobin ABG O2 Sat (Calculated) ABG O2 Saturation ABG Carboxyhemoglobin ABG Methemoglobin Tramaine Test A-a O2 Difference Total Hemoglobin Lactate Blood Gas Modality Vent Mode Spontaneous Rate FiO2 % Tidal Volume PEEP Sodium Potassium Chloride Carbon Dioxide Anion Gap BUN Creatinine Estimated GFR/1.73 m2 BUN/Creatinine Ratio Glucose POC Glucose 79 85 85 Calculated Osmolality Calcium Phosphorus Magnesium Albumin Assessment: Acute hypoxemic respiratory failure. Electively intubated secondary to percutaneous nephrostomy placement. Bilateral multifocal pneumonia with atelectasis. CXR today shows improved pulmonary edema. Acute renal failure secondary to obstruction with bladder cancer. Dialysis on hold per Dr. Gómez. Alkalemia with AG metabolic acidosis (worsened), metabolic alkalosis and respiratory alkalosis. Bladder cancer, diagnosed one year ago, but no treatment pursued. s/p percutaneous nephrostomy placement this morning. Severe microcytic anemia. Hgb 7.9 this morning. Poor prognosis. Plan: We checked Ventilation and titrated to the patients needs per clinical protocols. We titrated Sedative (Diprivan) to the patients needs per clinical protocols. We will keep closely monitoring patients clinical response. No weaning trials today secondary to tachycardia, worsened AG metabolic acidosis, mild hypoxemia and severe anemia. Continue antibiotics including Levaquin and Zyvox. Continue bronchodilators. Continue GI and DVT prophylaxis. Evaluation time in minutes: 33 minutes
[2019-11-29] MEDS: LOPRESSOR IV SCH ×5 (00:05→22:28)
[2019-11-29] MEDS: MORPHINE IV PRN ×3 (01:26→14:33)
[2019-11-29] MEDS: DIPRIVAN 1% 1,000 MG/100 ML BOTTLE IV SCH ×7 (01:26→22:32)
[2019-11-29] MEDS: XOPENEX NEB INH SCH ×6 (03:30→22:49)
[2019-11-29] MEDS: ATROVENT NEB INH SCH ×6 (03:30→22:49)
[2019-11-29 04:31] LABS: ALLEN TEST YES; BE -1.8 mmoll (-3.0-3.0); BLOOD TYPE ARTERIAL; HCO3-(ACT) 23.5 mmoll (20.0-26.0); METHB 1.2 % (0.0-1.5); O2(CT) 10.9 mL/dL (15.0-23.0); O2HB 94.9 % (95.0-99.0); PCO2(98.6) 38 mmHg (35-45); PO2(98.6) 96 mmHg (60-100); SAMPLE BLOOD; SAO2 97.1 % (95.0-100.0); SRATE 10 BPM; TVOL 500 mL; pH(98.6) 7.39 (7.35-7.45)
[2019-11-29 04:33] LABS: MODALITY VENTILATOR
[2019-11-29 04:51] LABS: URINE SOURCE CATH
[2019-11-29 04:56] LABS: BILIRUBIN URINE NEGATIVE (NEGATIVE); BLOOD URINE LARGE (NEGATIVE); COLOR ORANGE; GLUCOSE URINE NEGATIVE (NEGATIVE); KETONE URINE NEGATIVE (NEGATIVE); LEUKOCYTES URINE SMALL (NEGATIVE); NITRITE URINE NEGATIVE (NEGATIVE); PROTEIN URINE 50 mg/dL (NEGATIVE); SP GRAVITY URINE 1.017; TURBIDITY URINE TURBID (CLEAR); UROBILINOGEN URINE NORMAL (NORMAL)
[2019-11-29 04:58] LABS: UR EPITHELIAL CELLS <10 /HPF (<10); URINE BACTERIA NEGATIVE /HPF; URINE RBC TNTC /HPF (<10); URINE WBC 20-40 /HPF (<10)
[2019-11-29 04:59] LABS: BASO# 0.01 X1000 (0.0-0.2); BASO% 0.1 % (0.0-0.8); EOS% 5.3 % (0.0-10.0); HEMATOCRIT 24.7 % (42.0-52.0); HEMOGLOBIN 7.8 g/dL (14.0-18.0); IMM GRAN# 0.46 X1000 (0.0-0.04); LYMPH% 11.8 % (20.5-51.1); MCH 20.7 PG (27-31); MCHC 31.6 g/dL (33-37); MCV 65.7 FL (81-99); MONO# 1.26 X1000 (0.11-0.59); MONO% 8.3 % (1.7-9.3); NEUT% 71.5 % (42.2-75.2); PLT 277 X1000 (130-400); RBC 3.76 XMIL (4.7-6.1); RDW 25.8 % (11.5-14.5); WBC 15.23 X1000 (4.8-10.8)
[2019-11-29 05:13] LABS: ALBUMIN 2.9 g/dL (3.5-5.0); CALCIUM 9.1 mg/dL (8.8-10.2); CREATININE 2.5 mg/dL (0.7-1.2); MAGNESIUM 1.9 mg/dL (1.5-2.7); PHOSPHORUS 5.1 mg/dL (2.7-4.5); POTASSIUM 4.3 mmol/L (3.5-5.1)
[2019-11-29 06:59] LABS: UR AMPHETAMINES QUAL NONE DETECTED (NONE DETECT); UR BARBITUATES QUAL NONE DETECTED (NONE DETECT); UR BENZODIAZEPIN QUAL NONE DETECTED (NONE DETECT); UR CANNABINOIDS QUAL NONE DETECTED (NONE DETECT); UR COCAINE QUAL NONE DETECTED (NONE DETECT); UR METHADONE QUAL NONE DETECTED (NONE DETECT); UR OPIATES QUAL PRESUMPTIVE POSITIVE (NONE DETECT); UR OXYCODONE QUAL NONE DETECTED (NONE DETECT); UR PCP QUAL NONE DETECTED (NONE DETECT)
--- NOTE | 2019-11-29 07:31 | Diag Imaging Result Doc PS360 ---
CHEST-1 VIEW - 11/29/2019 INDICATION: SOB COMPARISON: 11/28/2019 FINDINGS: Support lines and tubes are stable. The lungs are clear. Heart size is normal. No pneumothorax or pleural effusion. IMPRESSION: No acute disease. Electronically signed by Zack Diane 11/29/2019 7:29 AM
--- NOTE | 2019-11-29 07:56 | PROGRESS NOTE ---
DATE: 11/29/2019 SUBJECTIVE: The patient underwent bilateral nephrostomy tube placement on 11/27/2019. Overall, the patient has been doing better since placement. Renal function is slowly improving. Creatinine is 2.5 today. The patient remains intubated as he was significantly agitated prior to procedure, weaning his ventilator settings with the hopes to extubate in the coming days. Nephrostomy tubes are draining bilaterally. Left side is slightly more bloody than the right. Over 2000cc recorded between the two sites. OBJECTIVE: Vital Sign: Temperature 98.6, heart rate 100, blood pressure 120/73, oxygen saturation 96% on endotracheal intubation with 35% oxygen. General: Sedated. No arousal to stimulation. Respiratory: Good respiratory effort on ventilator. Abdomen: Soft, nontender. : No suprapubic tenderness. No CVA tenderness. Bilateral nephrostomy tubes in place. Right side is draining clear-yellow urine. Left side has thin, bloody output. I flushed his tube on the left side, which drained efficiently and irrigated well. LABORATORY DATA: White blood cell count 15.2, hemoglobin 7.8, hematocrit 24.7, platelets 277,000. Sodium 145, potassium 4.3, chloride 108, bicarb 21, BUN 43, creatinine 2.5, glucose 100. Phosphorus 5.1. ASSESSMENT AND PLAN: Mr. Abraham is a 53-year-old with evidence of metastatic bladder cancer, who presented with acute kidney injury with creatinine elevated at 33. The patient was started on dialysis. CT scan was obtained, which showed bilateral obstruction from his bladder mass. The patient underwent nephrostomy tube placement on 11/27/2019, and both tubes have been draining well. Left side is slightly more bloody than the right. However, it continues to drain. I was able to irrigate it this morning, and it drained efficiently. 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 Renal function seems to be slowly improving, creatinine 2.5 from 3.2 yesterday. The patient remains intubated with plan to extubate in the coming days. They are weaning him actively. From a urologic standpoint, the patient has metastatic bladder cancer, and would likely need systemic therapies if clinical improves. Would follow recommendations of black leather buffer regarding extubation. The patient was significantly agitated and in pain prior. My hope is that the nephrostomy tubes will help; uncertain if this will be true or not. Will continue to monitor from a urologic standpoint. Please call with questions or concerns. cc: Nico Roberson MD MTDD
--- NOTE | 2019-11-29 08:09 | Diag Imaging Result Doc PS360 ---
EXAM: NEPHROSTOGRAM NEW ACCESS 11/27/2019 HISTORY: HYDRONEPHROSIS TECHNIQUE: Left percutaneous nephrostomy with ultrasonographic and fluoroscopic guidance. COMMENT: Consent had been previously obtained from the patient's family. The procedure was performed in the operating room. Following sterile preparation the skin posteriorly and administration 1% lidocaine to the skin and deeper soft tissues, the lower pole calyx was punctured and subsequent opacification of the system and passage of the 0.18 guidewire was performed. There is considerable extravasation of contrast. The tract was dilated to 11-[place] and subsequently a 10.2-[place]er cope loop nephrostomy catheter was placed in the lower renal pelvis. This is secured to the skin with suture and the adhesive device provided with catheter. IMPRESSION: Successful left percutaneous nephrostomy placement. Electronically signed by Jacky Christianson 11/27/2019 11:15 AM
[2019-11-29] MEDS: HEPARIN SUBQ SCH ×2 (08:39→20:41)
[2019-11-29] MEDS: DULCOLAX PR SCH ×2 (08:39→20:41)
[2019-11-29] MEDS: LIDODERM TOP SCH (08:42)
--- NOTE | 2019-11-29 10:16 | PROGRESS NOTE ---
DATE: 11/29/2019 SUBJECTIVE: I have seen and examined Mr. Abraham today. He continues to be in the critical care unit. He is intubated and sedated on propofol. His tube feeding has been withheld with anticipation of spontaneous breathing trial. No family member at the bedside. Per the nursing staff, he is stable. OBJECTIVELY: Vital Signs: His current vital signs, blood pressure is 107/69, pulse of 105, respirations 17, temperature is 100.4 degrees. General: Mr. Abraham is a 53-year-old elderly gentleman. He is in bed, currently intubated and sedated. HEENT: Mucosa is pink and moist. Anicteric. Acyanotic. Neck: Supple. There is a right external jugular line access in place. Chest: Air entry is bilaterally reduced. Some transmitted sounds from the ventilator. Cardiovascular: Regular rate and rhythm. No murmurs. Gastrointestinal: The abdomen is soft. Bowel sounds present. Extremities: No pedal edema. There is bilateral nephrostomy tube in place. Central Nervous System: The patient is currently intubated and sedated on propofol. He will, however, grimace to painful stimulation. Input and Output: The patient's input and output, the nephrostomy output in total has been 2255. He is currently negative balance over 6449. LABORATORY DATA: WBC is 15.25, hemoglobin is 7.8, platelet count of 277,000. Chemistry is also reviewed. Creatinine is down to 2.5. Potassium has also normalized. So far blood cultures have been 48 hours negative. MEDICATIONS: The patient's medications have all been also reviewed. He continues to be on Zyvox 600, today is day 4. Levofloxacin 500 every 48 hours, today is day 4. IMAGING STUDIES: Chest x-ray this morning continues to show supportive tubes and lines stable. Lungs are clear. No pneumothorax or pleural effusion. ASSESSMENT AND PLAN: 1. Acute hypoxemic respiratory failure secondary to bilateral multifocal pneumonia. The patient continues to be on the ventilator. Pulmonary Medicine is following. He is on Zyvox and Levaquin, today is day 4. 2. 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 The patient is status post bilateral nephrostomy tubes. Creatinine continues to improve. Both Urology and Nephrology on board. 3. Altered mental status on presentation secondary to metabolic encephalopathy. 4. Microcytic anemia. The patient's iron studies cannot be done any longer since he got 2 units of packed red blood cells. We hope that iron has also been restored. 5. Nutritional support. The patient continues to be on tube feedings, tolerating well. SUMMARY: So, in general, I think Mr. Abraham continues to be critically sick, but a little bit more stable today. Presented because of altered mental status from uremic encephalopathy, possible infectious encephalopathy as well. Underwent bilateral nephrostomy tube placement. Creatinine is improving. Potassium has normalized. The patient is on antimicrobials. He has been followed up by Urology, Nephrology, and Pulmonary Medicine. We will continue to follow their recommendations. The patient's disposition is going to depend on the rest of his hospital course. cc: Jese Peoples MD
[2019-11-29] MEDS: ATIVAN IV PRN (11:17)
[2019-11-29] MEDS: TYLENOL LIQUID NG PRN (14:33)
[2019-11-29] MEDS: PROTONIX IV SCH (14:33)
[2019-11-29] MEDS: SODIUM CHLORIDE 0.9% INJ SCH (14:33)
[2019-11-29] MEDS: LEVAQUIN 500 MG/D5W 500 MG/100 ML IVPB IV SCH (14:34)
[2019-11-29] MEDS: ZYVOX 600 MG/D5W 600 MG/300 ML IVPB IV SCH (18:08)
--- NOTE | 2019-11-29 18:36 | PROVIDER PROGRESS NOTE ---
Progress Note Dr. Black Progress Note/Pulmonary and or critical care Subjective: The patient stays intubated. He developed fever at 100.4 this morning and this is patients second episode of fever in last 24 hours. Family is at the bedside. Input was appreciated from Dr. Peoples and other teams on the case. Objective: Vital Signs: T 100.4(Two episodes of fever in last 24 hours), TN 103, RR 17, BP 129/79 and SaO2 98% on AC 10, 30%, 500, 5. I/O: -405ml. Physical Examination: General: Intubated. No acute distress noted. Bilateral nephrostomy tubes noted with half full bloody urine in the right one and some in the left one. HEENT: Normocephalic. Trachea midline. ET tube in place. Mucosa pink and dry. Chest: Mechanically ventilated. Symmetrical excursion. Good air entry bilaterally with inspiratory crackles bibasilarly. CVS: Tachycardia. S1 and S2 appreciated. Abdomen: Soft. Non-distended. Bowel sounds present. Generalized tenderness. Extremities: No edema. No cyanosis. No clubbing. Neuro: Sedated. Responsive to tactile stimuli. Labs and Radiology: Laboratory Results 11/28/19 11/29/19 11/29/19 20:39 01:16 04:05 WBC RBC Hgb Hct MCV MCH MCHC RDW Std Deviation Plt Count MPV Immature Gran % (Auto) Neut % (Auto) Lymph % (Auto) [place] % (Auto) Eos % (Auto) Baso % (Auto) Immature Gran # (Auto) Neut # (Auto) Lymph # (Auto) [place] # (Auto) Eos # (Auto) Baso # (Auto) Segmented Neutrophils Specimen Type Sample Site pH pCO2 pO2 HCO3 Base Excess Oxyhemoglobin ABG O2 Sat (Calculated) ABG O2 Saturation ABG Carboxyhemoglobin ABG Methemoglobin Tramaine Test A-a O2 Difference Total Hemoglobin Lactate Blood Gas Modality Vent Mode Spontaneous Rate FiO2 % Tidal Volume PEEP Sodium Potassium Chloride Carbon Dioxide Anion Gap BUN Creatinine Estimated GFR/1.73 m2 BUN/Creatinine Ratio Glucose POC Glucose 104 93 82 Calculated Osmolality Calcium Phosphorus Magnesium Albumin Urine Source Urine Color Urine Turbidity Urine pH Ur Specific Stryker Urine Protein Ur Glucose (Stick) Ur Ketones (Stick) Urine Blood Urine Nitrite Urine Bilirubin Urobilinogen Dipstick Urine Leukocytes Urine WBC (Auto) Urine RBC (Auto) U Epithel Cells (Auto) Urine Bacteria (Auto) Urine Opiates Screen Ur Oxycodone Screen Ur Methadone, Qual Ur Barbiturates Screen Ur Phencyclidine Scrn Ur Amphetamines Screen U Benzodiazepines Scrn Urine Cocaine Screen U Cannabinoids Screen 11/29/19 11/29/19 11/29/19 04:15 04:15 04:15 WBC 15.23 H RBC 3.76 L Hgb 7.8 L Hct 24.7 L MCV 65.7 L MCH 20.7 L MCHC 31.6 L RDW Std Deviation 25.8 H Plt Count 277 MPV Not Reportable Immature Gran % (Auto) 3.0 H Neut % (Auto) 71.5 Lymph % (Auto) 11.8 L [place] % (Auto) 8.3 Eos % (Auto) 5.3 Baso % (Auto) 0.1 Immature Gran # (Auto) 0.46 H Neut # (Auto) 10.90 H Lymph # (Auto) 1.80 [place] # (Auto) 1.26 H Eos # (Auto) 0.80 H Baso # (Auto) 0.01 Segmented Neutrophils Not Reportable Specimen Type ARTERIAL Sample Site R RADIAL pH 7.39 pCO2 38 pO2 96 HCO3 23.5 Base Excess -1.8 Oxyhemoglobin 94.9 L ABG O2 Sat (Calculated) 10.9 L ABG O2 Saturation 97.1 ABG Carboxyhemoglobin 1.10 ABG Methemoglobin 1.2 Tramaine Test YES A-a O2 Difference 70.0 Total Hemoglobin 8.0 L Lactate 1.10 Blood Gas Modality VENTILATOR Vent Mode A/C Spontaneous Rate 10 FiO2 % 30.0 Tidal Volume 500 PEEP 5.0 Sodium 145 Potassium 4.3 Chloride 108 H Carbon Dioxide 21 L Anion Gap 16 BUN 43 H Creatinine 2.5 H Estimated GFR/1.73 m2 27 BUN/Creatinine Ratio 17 Glucose 100 POC Glucose Calculated Osmolality 300 Calcium 9.1 Phosphorus Magnesium Albumin Urine Source Urine Color Urine Turbidity Urine pH Ur Specific [place]ker Urine Protein Ur Glucose (Stick) Ur Ketones (Stick) Urine Blood Urine Nitrite Urine Bilirubin Urobilinogen Dipstick Urine Leukocytes Urine WBC (Auto) Urine RBC (Auto) U Epithel Cells (Auto) Urine Bacteria (Auto) Urine Opiates Screen Ur Oxycodone Screen Ur Methadone, Qual Ur Barbiturates Screen Ur Phencyclidine Scrn Ur Amphetamines Screen U Benzodiazepines Scrn Urine Cocaine Screen U Cannabinoids Screen 11/29/19 11/29/19 11/29/19 04:15 04:15 06:00 WBC RBC Hgb Hct MCV MCH MCHC RDW Std Deviation Plt Count MPV Immature Gran % (Auto) Neut % (Auto) Lymph % (Auto) [place] % (Auto) Eos % (Auto) Baso % (Auto) Immature Gran # (Auto) Neut # (Auto) Lymph # (Auto) [place] # (Auto) Eos # (Auto) Baso # (Auto) Segmented Neutrophils Specimen Type Sample Site pH pCO2 pO2 HCO3 Base Excess Oxyhemoglobin ABG O2 Sat (Calculated) ABG O2 Saturation ABG Carboxyhemoglobin ABG Methemoglobin Tramaine Test A-a O2 Difference Total Hemoglobin Lactate Blood Gas Modality Vent Mode Spontaneous Rate FiO2 % Tidal Volume PEEP Sodium Potassium Chloride Carbon Dioxide Anion Gap BUN Creatinine Estimated GFR/1.73 m2 BUN/Creatinine Ratio Glucose POC Glucose Calculated Osmolality Calcium Phosphorus 5.1 H Magnesium 1.9 Albumin 2.9 L Urine Source CATH Urine Color ORANGE Urine Turbidity TURBID Urine pH 6.0 Ur Specific [place]ker 1.017 Urine Protein 50 A Ur Glucose (Stick) NEGATIVE Ur Ketones (Stick) NEGATIVE Urine Blood LARGE A Urine Nitrite NEGATIVE Urine Bilirubin NEGATIVE Urobilinogen Dipstick NORMAL Urine Leukocytes SMALL A Urine WBC (Auto) 20-40 A Urine RBC (Auto) TNTC A U Epithel Cells (Auto) <10 Urine Bacteria (Auto) NEGATIVE Urine Opiates Screen PRESUMPTIVE POSITIVE A Ur Oxycodone Screen NONE DETECTED Ur Methadone, Qual NONE DETECTED Ur Barbiturates Screen NONE DETECTED Ur Phencyclidine Scrn NONE DETECTED Ur Amphetamines Screen NONE DETECTED U Benzodiazepines Scrn NONE DETECTED Urine Cocaine Screen NONE DETECTED U Cannabinoids Screen NONE DETECTED 11/29/19 11/29/19 11/29/19 08:51 14:30 16:23 WBC RBC Hgb Hct MCV MCH MCHC RDW Std Deviation Plt Count MPV Immature Gran % (Auto) Neut % (Auto) Lymph % (Auto) [place] % (Auto) Eos % (Auto) Baso % (Auto) Immature Gran # (Auto) Neut # (Auto) Lymph # (Auto) [place] # (Auto) Eos # (Auto) Baso # (Auto) Segmented Neutrophils Specimen Type Sample Site pH pCO2 pO2 HCO3 Base Excess Oxyhemoglobin ABG O2 Sat (Calculated) ABG O2 Saturation ABG Carboxyhemoglobin ABG Methemoglobin Tramaine Test A-a O2 Difference Total Hemoglobin Lactate Blood Gas Modality Vent Mode Spontaneous Rate FiO2 % Tidal Volume PEEP Sodium Potassium Chloride Carbon Dioxide Anion Gap BUN Creatinine Estimated GFR/1.73 m2 BUN/Creatinine Ratio Glucose POC Glucose 94 72 98 Calculated Osmolality Calcium Phosphorus Magnesium Albumin Urine Source Urine Color Urine Turbidity Urine pH Ur Specific Stryker Urine Protein Ur Glucose (Stick) Ur Ketones (Stick) Urine Blood Urine Nitrite Urine Bilirubin Urobilinogen Dipstick Urine Leukocytes Urine WBC (Auto) Urine RBC (Auto) U Epithel Cells (Auto) Urine Bacteria (Auto) Urine Opiates Screen Ur Oxycodone Screen Ur Methadone, Qual Ur Barbiturates Screen Ur Phencyclidine Scrn Ur Amphetamines Screen U Benzodiazepines Scrn Urine Cocaine Screen U Cannabinoids Screen Assessment: Acute hypoxemic respiratory failure. Electively intubated secondary to percutaneous nephrostomy placement on 11/27/19. Bilateral multifocal pneumonia with atelectasis. Radiographically resolved. CXR today shows no acute disease. Acute renal failure secondary to obstruction with bladder cancer. Dialysis on ld per Dr. Gómez. AG metabolic acidosis (improved), compensated with metabolic alkalosis. Bladder cancer, diagnosed one year ago, but no treatment pursued. s/p percutaneous nephrostomy placement this morning. Severe microcytic anemia. Hgb 7.8 this morning. Poor prognosis. Plan: We checked Ventilation and titrated to the patients needs per clinical protocols. We will keep monitoring patients response closely. We titrated Sedative (Diprivan) to the patients needs per clinical protocols. We will keep monitoring patients response closely. No weaning trials today secondary to metabolic acidosis, severe anemia and new- onset fever. Continue antibiotics including Levaquin (not giving since 11/27/19) and Zyvox. On Day 4. Continue bronchodilators. Continue GI and DVT prophylaxis. We discuss patients condition and care plan with family at the bedside. All questions have been answered. Evaluation time in minutes: 33 minutes
--- NOTE | 2019-11-29 18:55 | PROVIDER PROGRESS NOTE ---
Progress Note Subjective: He is sedated on propofol in no apparent distress. No family at bedside. Objective: temperature 98.6, pulse 101, respirations 16, blood pressure 130/78, 02 sat 96% on 30% FIo2 mechanical ventilation. General: chronically ill white male lying in bed in no acute distress. HEENT: normocephalic, atraumatic, pupils equal and reactive, mucous membranes dry. NG tube in place. Skin: pale, warm and dry. Nephrostomy tubes in place. Left has bloody drainage. Right is clear yellow. Neck: supple, 6 cm JVD Cardiovascular: S1, S2, intermittent S3, as well as s4. Tachycardic rate and rhythm. No murmurs or gallops noted. Respiratory: coarse lungs anteriorly Abdomen: soft, nontender, nondistended. Active bowel sounds. : non inspected Extremities: no edema noted Neurological: sedated Labs: WBC 15.23, hemoglobin 7.8, hematocrit 24.7, sodium 145, potassium 4.3, chloride 108, carbon dioxide 21, BUN 43, creatinine 2.5. Impression: Acute renal failure obstructed rapidly. He is status post bilateral nephrostomy tube placement. His Creatinine is stable. We will hold off on hemodialysis treatment today and reevaluate him tomorrow. Blood pressure. Stable. Fluid volume. Euvolemic. Electrolytes. Stable. metabolic anion gap acidosis related to renal failure. Improving. Nutrition. Tube feeding in place. Medication review. No changes.
[2019-11-30] MEDS: DIPRIVAN 1% 1,000 MG/100 ML BOTTLE IV SCH ×6 (01:35→21:17)
[2019-11-30] MEDS: ATROVENT NEB INH SCH ×5 (03:41→19:26)
[2019-11-30] MEDS: XOPENEX NEB INH SCH ×5 (03:41→19:26)
[2019-11-30] MEDS: MORPHINE IV PRN ×3 (04:29→17:04)
[2019-11-30 04:45] LABS: ALLEN TEST YES; BE -2.6 mmoll (-3.0-3.0); BLOOD TYPE ARTERIAL; HCO3-(ACT) 22.9 mmoll (20.0-26.0); METHB 1.3 % (0.0-1.5); O2(CT) 12.4 mL/dL (15.0-23.0); O2HB 95.6 % (95.0-99.0); PCO2(98.6) 34 mmHg (35-45); PO2(98.6) 112 mmHg (60-100); SAMPLE BLOOD; SAO2 97.5 % (95.0-100.0); SRATE 10 BPM; THB 9.1 g/dL (11.5-17.4); TVOL 500 mL; pH(98.6) 7.41 (7.35-7.45)
[2019-11-30 04:46] LABS: MODALITY VENTILATOR
[2019-11-30] MEDS: LOPRESSOR IV SCH ×4 (04:47→23:26)
[2019-11-30 06:09] LABS: BASO# 0.02 X1000 (0.0-0.2); BASO% 0.1 % (0.0-0.8); EOS# 0.99 X1000 (0.0-0.7); HEMATOCRIT 27.2 % (42.0-52.0); HEMOGLOBIN 8.4 g/dL (14.0-18.0); IMM GRAN# 0.69 X1000 (0.0-0.04); IMM GRAN% 4.2 % (0.0-0.5); LYMPH# 1.36 X1000 (1.2-3.4); LYMPH% 8.2 % (20.5-51.1); MCH 20.3 PG (27-31); MCHC 30.9 g/dL (33-37); MCV 65.9 FL (81-99); MONO# 1.74 X1000 (0.11-0.59); MONO% 10.5 % (1.7-9.3); NEUT# 11.81 X1000 (1.4-6.5); PLT 298 X1000 (130-400); RBC 4.13 XMIL (4.7-6.1); RDW 26.2 % (11.5-14.5); WBC 16.61 X1000 (4.8-10.8)
--- NOTE | 2019-11-30 06:44 | Diag Imaging Result Doc PS360 ---
EXAM: CHEST-1 VIEW HISTORY: SOB TECHNIQUE: Single view COMPARISON: 11/29/2019 FINDINGS: No change in the right jugular line, the endotracheal tube, or the nasogastric tube. The lungs are well expanded and clear. No cardiomegaly. No pleural effusions identified. There is a granuloma in the right base. IMPRESSION: Stable chest Electronically signed by Dev Bae 11/30/2019 6:42 AM
[2019-11-30 06:47] LABS: CREATININE 2.5 mg/dL (0.7-1.2)
[2019-11-30] MEDS: TYLENOL LIQUID NG PRN ×2 (07:54→17:59)
[2019-11-30] MEDS: LIDODERM TOP SCH (08:09)
[2019-11-30] MEDS: DULCOLAX PR SCH ×2 (08:09→20:27)
[2019-11-30] MEDS: HEPARIN SUBQ SCH ×2 (08:09→20:27)
[2019-11-30] MEDS: MAXIPIME 1 GM in NS 50 ML IV SCH ×2 (09:49→20:27)
[2019-11-30] MEDS: MYCOSTATIN SUSP PO SCH ×3 (14:00→20:27)
[2019-11-30] MEDS: PROTONIX IV SCH (14:11)
[2019-11-30] MEDS: SODIUM CHLORIDE 0.9% INJ SCH (14:12)
--- NOTE | 2019-11-30 16:27 | PROVIDER PROGRESS NOTE ---
Progress Note Subjective: he remains intubated and sedated. No Family at bedside. Objective: temperature 101.7, pulse 113, respirations 17, blood pressure 114/73, 02 sat 95% on 30% FiO2 mechanical ventilation. General: chronically ill white male lying in bed in no acute distress. HEENT: normocephalic, atraumatic, pupils equal and reactive, mucous membranes dry. NG tube in place. Skin: pale, warm and dry. Nephrostomy tubes in place. Left has slightly bloody drainage. Right is clear yellow. Neck: supple, 8 cm JVD Cardiovascular: S1, S2, as well as s4. Tachycardic rate and rhythm. No murmurs or gallops noted. Respiratory: coarse lungs anteriorly Abdomen: soft, nontender, nondistended. Active bowel sounds. : non inspected Extremities: 1+ pitting edema noted Neurological: sedated Labs: WBC 16.61, hemoglobin 8.4, hematocrit 27.2, platelet count 298, sodium 144, potassium 5.0, chloride 106, carbon dioxide 18, do you win 48, creatinine 2.5. Intake 1963, output 2920. Impression: Acute renal failure obstructed uropathy. He is status post bilateral nephrostomy tube placement post op day 3. Febrile. We will get his access out. His Creatinine is stable but he does appear more fluid volume expanded. Blood pressure. Stable. Fluid volume. Slightly expanded. Electrolytes. Stable. metabolic anion gap acidosis related to renal failure. Nutrition. Tube feeding in place. Medication review. Cefepime started.
[2019-11-30] MEDS: ZYVOX 600 MG/D5W 600 MG/300 ML IVPB IV SCH (17:59)
--- NOTE | 2019-11-30 18:48 | PROVIDER PROGRESS NOTE ---
Progress Note Dr. Black Progress Note/Pulmonary and or critical care Subjective: The patient stays intubated. He still has fever in last [address] Gómez has approved RN to remove Filiberto-Cath. Family is at the bedside. Input was appreciated from Dr. Calloway and other teams on the case. Objective: Vital Signs: T 101.7(fever in last 24 hours), MD 113, RR 19, BP 114/73 and SaO2 95% on AC 10, 30%, 500, 5. I/O: -957ml. Physical Examination: General: Intubated. No acute distress noted. Bilateral nephrostomy tubes noted with half full bloody urine in the right one and some in the left one. HEENT: Normocephalic. Trachea midline. ET tube in place. Mucosa pink and dry. Chest: Mechanically ventilated. Symmetrical excursion. Good air entry bilaterally with inspiratory crackles bibasilarly. CVS: Tachycardia. S1 and S2 appreciated. Abdomen: Soft. Non-distended. Bowel sounds present. Generalized tenderness. Extremities: No edema. No cyanosis. No clubbing. Neuro: Sedated. Responsive to tactile stimuli. Labs and Radiology: Laboratory Results 11/29/19 11/30/19 11/30/19 20:36 00:40 04:16 WBC RBC Hgb Hct MCV MCH MCHC RDW Std Deviation Plt Count MPV Immature Gran % (Auto) Neut % (Auto) Lymph % (Auto) [place] % (Auto) Eos % (Auto) Baso % (Auto) Immature Gran # (Auto) Neut # (Auto) Lymph # (Auto) [place] # (Auto) Eos # (Auto) Baso # (Auto) Specimen Type Sample Site pH pCO2 pO2 HCO3 Base Excess Oxyhemoglobin ABG O2 Sat (Calculated) ABG O2 Saturation ABG Carboxyhemoglobin ABG Methemoglobin Tramaine Test A-a O2 Difference Total Hemoglobin Lactate Blood Gas Modality Spontaneous Rate FiO2 % Tidal Volume PEEP Sodium Potassium Chloride Carbon Dioxide Anion Gap BUN Creatinine Estimated GFR/1.73 m2 BUN/Creatinine Ratio Glucose POC Glucose 100 98 97 Calculated Osmolality Calcium 11/30/19 11/30/19 11/30/19 04:36 05:45 05:45 WBC 16.61 H RBC 4.13 L Hgb 8.4 L Hct 27.2 L MCV 65.9 L MCH 20.3 L MCHC 30.9 L RDW Std Deviation 26.2 H Plt Count 298 MPV Not Reportable Immature Gran % (Auto) 4.2 H Neut % (Auto) 71.0 Lymph % (Auto) 8.2 L [place] % (Auto) 10.5 H Eos % (Auto) 6.0 Baso % (Auto) 0.1 Immature Gran # (Auto) 0.69 H Neut # (Auto) 11.81 H Lymph # (Auto) 1.36 [place] # (Auto) 1.74 H Eos # (Auto) 0.99 H Baso # (Auto) 0.02 Specimen Type ARTERIAL Sample Site R RADIAL pH 7.41 pCO2 34 L pO2 112 H HCO3 22.9 Base Excess -2.6 Oxyhemoglobin 95.6 ABG O2 Sat (Calculated) 12.4 L ABG O2 Saturation 97.5 ABG Carboxyhemoglobin 0.70 ABG Methemoglobin 1.3 Tramaine Test YES A-a O2 Difference 59.0 Total Hemoglobin 9.1 L Lactate 1.40 Blood Gas Modality VENTILATOR Spontaneous Rate 10 FiO2 % 30.0 Tidal Volume 500 PEEP 5.0 Sodium 144 Potassium 5.0 D Chloride 106 Carbon Dioxide 18 L Anion Gap 20 BUN 48 H Creatinine 2.5 H Estimated GFR/1.73 m2 27 BUN/Creatinine Ratio 19 Glucose 99 POC Glucose Calculated Osmolality 299 Calcium 9.0 11/30/19 11/30/19 11/30/19 08:15 12:22 16:54 WBC RBC Hgb Hct MCV MCH MCHC RDW Std Deviation Plt Count MPV Immature Gran % (Auto) Neut % (Auto) Lymph % (Auto) [place] % (Auto) Eos % (Auto) Baso % (Auto) Immature Gran # (Auto) Neut # (Auto) Lymph # (Auto) [place] # (Auto) Eos # (Auto) Baso # (Auto) Specimen Type Sample Site pH pCO2 pO2 HCO3 Base Excess Oxyhemoglobin ABG O2 Sat (Calculated) ABG O2 Saturation ABG Carboxyhemoglobin ABG Methemoglobin Tramaine Test A-a O2 Difference Total Hemoglobin Lactate Blood Gas Modality Spontaneous Rate FiO2 % Tidal Volume PEEP Sodium Potassium Chloride Carbon Dioxide Anion Gap BUN Creatinine Estimated GFR/1.73 m2 BUN/Creatinine Ratio Glucose POC Glucose 112 H 102 102 Calculated Osmolality Calcium Assessment: Acute hypoxemic respiratory failure. Electively intubated secondary to percutaneous nephrostomy placement on 11/27/19. Bilateral multifocal pneumonia with atelectasis. Radiographically resolved. CXR today shows stable chest. Acute renal failure secondary to obstruction with bladder cancer. Dialysis on hold per Dr. Gómez. AG metabolic acidosis (improved), compensated with metabolic alkalosis. Bladder cancer, diagnosed one year ago, but no treatment pursued. s/p percutaneous nephrostomy placement this morning. Severe microcytic anemia. Hgb 8.4 this morning. Fever and worsening leukocytosis. Poor prognosis. Plan: We checked Ventilation and titrated to the patients needs per clinical protocols. We will keep monitoring patients response closely. We titrated Sedative (Diprivan) to the patients needs per clinical protocols. We will keep monitoring patients response closely. No weaning trials today secondary to worsening AG metabolic acidosis and fever. Continue antibiotics including Levaquin and Zyvox. On Day 5. Cefepime added today. Continue bronchodilators. Continue GI and DVT prophylaxis. We discuss patients condition and care plan with family at the bedside. All questions have been answered. Evaluation time in minutes: 31 minutes
--- NOTE | 2019-11-30 19:00 | PROGRESS NOTE ---
DATE: 11/30/2019 SUBJECTIVE: Mr. Abraham was admitted on 11/24/2019. He just came in not feeling good. A 53-year- old diagnosed with bladder cancer about a year ago. Refused all treatments. Only treatments he has used is he reportedly takes Goody powders and got some sort of medication treatment to treat parasitic infections in his dogs and dog worm medication. Unclear how much and how long he has been taking that and would say that within the last week, unclear if he had any baseline psychiatric issues, but he has had weakening, dizziness, vomiting, and now would like to have treatment. He has not had any urine output in the last 24 hours before he came in with profound renal failure and profound hyperkalemia, undergoing dialysis. He was mentating well, although he had gotten somewhat lethargic. Admitted for acute renal failure, most likely post obstructive uropathy from bladder cancer with subsequent hyperkalemia and arrhythmia. OBJECTIVE: General: On exam today, he is on the ventilator. He is nonresponsive. Vital signs: His temperature is 99.8 degrees, pulse 75, respirations 18, blood pressure 101/62. Eyes: Pupils are equal. Lungs: Clear anterolateral. Cardiovascular: Regular rhythm and rate without murmur or S3. Abdomen: Soft. Urine output from yesterday was almost 5000 mL. ASSESSMENT AND PLAN: 1. Acute renal failure, obstructive uropathy, status post bilateral nephrostomy tube placements, postoperative day #3. Febrile. He will get his access out and his creatinine is stable, but he appears to be more fluid volume expanded. 2. Blood pressure is stable. 3. Fluid volume slightly expanded. 4. Electrolytes are stable. 5. Metabolic anion gap, related to renal failure. 6. Continue tube feedings for nutrition. 7. Chest x-ray from today: Stable chest. No change in the right jugular line, endotracheal tube, or nasogastric tube. His lungs were well expanded and clear. No cardiomegaly. No pleural effusions identified. There was granuloma in the right base, which I think is unchanged. He had acute hypoxemic respiratory failure secondary to bilateral multifocal pneumonia. Continue ventilator support. He is on Zyvox and Levaquin. 8. Macrocytic anemia. Iron studies cannot be done any longer since he had 2 units of packed red blood cells. 9. 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 He is status post bilateral nephrostomy tubes. Creatinine continues to improve. REVIEW OF HIS ORDERS: I do not know that I see any change. 1. Getting heparin 5000 units subcutaneously every 12 hours. 2. He gets Apresoline 10 mg intravenously every 4 hours p.r.n. 3. He is on ipratropium bromide, breathing treatments, 0.5 mg q.4 hours. 4. Levaquin 500 mg intravenously every 48 hours. 5. Lidocaine patch 5% topically every day. 6. Methocarbamol 500 mg intravenously q.8 hours p.r.n. 7. Lopressor 5 mg intravenously q.6 hours p.r.n. 8. Morphine 2 mg intravenously q.4 hours p.r.n. 9. Protonix 40 mg intravenously q.12. 10. He is on Diprivan for sedation. 11. He gets Geodon 10 mg q.12 p.r.n. 12. Linezolid 600 mg intravenously q.24 hours. 13. Hyoscyamine sublingual 0.125 mg t.i.d. cc: Tramaine Calloway MD
[2019-12-01] MEDS: DIPRIVAN 1% 1,000 MG/100 ML BOTTLE IV SCH ×5 (00:25→16:55)
[2019-12-01] MEDS: ATROVENT NEB INH SCH ×5 (03:15→14:58)
[2019-12-01] MEDS: XOPENEX NEB INH SCH ×5 (03:15→14:58)
[2019-12-01 05:13] LABS: ALLEN TEST YES; BE -1.5 mmoll (-3.0-3.0); BLOOD TYPE ARTERIAL; HCO3-(ACT) 23.8 mmoll (20.0-26.0); PCO2(98.6) 37 mmHg (35-45); PO2(98.6) 99 mmHg (60-100); SAMPLE BLOOD; SRATE 10 BPM; TVOL 500 mL
[2019-12-01 05:14] LABS: MODALITY VENTILATOR
[2019-12-01] MEDS: LOPRESSOR IV SCH ×2 (05:31→12:11)
[2019-12-01 06:05] LABS: BASO# 0.02 X1000 (0.0-0.2); BASO% 0.1 % (0.0-0.8); EOS# 0.96 X1000 (0.0-0.7); EOS% 6.8 % (0.0-10.0); HEMATOCRIT 28.4 % (42.0-52.0); HEMOGLOBIN 8.6 g/dL (14.0-18.0); IMM GRAN# 0.67 X1000 (0.0-0.04); IMM GRAN% 4.7 % (0.0-0.5); LYMPH# 1.62 X1000 (1.2-3.4); LYMPH% 11.4 % (20.5-51.1); MCHC 30.3 g/dL (33-37); MCV 65.9 FL (81-99); MONO# 1.61 X1000 (0.11-0.59); MONO% 11.4 % (1.7-9.3); NEUT# 9.27 X1000 (1.4-6.5); NEUT% 65.6 % (42.2-75.2); PLT 289 X1000 (130-400); RBC 4.31 XMIL (4.7-6.1); RDW 25.7 % (11.5-14.5); WBC 14.15 X1000 (4.8-10.8)
[2019-12-01 06:44] LABS: CALCIUM 9.6 mg/dL (8.8-10.2); CREATININE 2.1 mg/dL (0.7-1.2)
[2019-12-01 06:59] LABS: POTASSIUM 4.6 mmol/L (3.5-5.1)
--- NOTE | 2019-12-01 07:27 | Diag Imaging Result Doc PS360 ---
EXAM: CHEST-1 VIEW HISTORY: SOB TECHNIQUE: Single view COMPARISON: 11/30/2019 FINDINGS: No change in the endotracheal tube or nasogastric tube. The right jugular line has been removed. The lungs are well expanded and clear. No infiltrates. No cardiomegaly. No pulmonary edema. No pleural effusions identified. There is a granuloma in the right lung base. IMPRESSION: No acute abnormality. Electronically signed by Dev Bae 12/01/2019 7:24 AM
--- NOTE | 2019-12-01 07:34 | PROGRESS NOTE ---
DATE: 12/01/2019 SUBJECTIVE: The patient remains in the ICU, intubated. The patient has been having some low- grade temperatures up to 101.7 yesterday. Tachycardia seems to be improving with heart rate in the low 90s. Currently remains afebrile. Good output from both nephrostomy tubes. The right is greater than the left. Urine output from the left nephrostomy tube is clearing with no significant clots seen within the drainage bag today. OBJECTIVE: Vital Signs: Temperature 99.3 degrees, heart rate 94, blood pressure 120/84, oxygenation 99% on the ventilator. General: Sedated, does not respond to stimulation. Respiratory: No audible wheezing. The patient remained intubated. Abdomen: Soft, nontender, nondistended. No palpable masses. On tube feedings. : No suprapubic tenderness. No CVA tenderness. He has bilateral nephrostomy tube in place draining clear yellow urine, right greater than left. Extremities: No evidence of any lower extremity edema. LABS: White blood cell count 14.2, hemoglobin 8.6, hematocrit 28.4, platelets 289,000. BMP shows sodium 145, potassium 4.6, chloride 109, bicarbonate 20, BUN 51, creatinine 2.1, glucose 105. ASSESSMENT AND PLAN: Mr. Abraham is a 53-year-old with metastatic urothelial carcinoma of the bladder, who presented to the hospital with acute kidney injury with creatinine elevated at 33. He was initially started on dialysis with a CT scan which showed bilateral obstruction due to bladder mass. The patient has subsequent undergone nephrostomy tube placement and tube seemed to be draining adequately, left nephrostomy tube with smaller volume than the right. Both sides are clear yellow this morning. Renal function was improving yesterday with creatinine 2.5 and down to 2.1. Continues to make good urinary output from his nephrostomy tubes, [id number] recorded yesterday. The patient remains on tube feeds for nutrition. The patient has had intermittent low-grade temperatures. The plan has been for him to be extubated. Would leave that up to the ICU team regarding timing of this. From a urologic standpoint renal function seems to be improving slightly. Nephrostomy tubes are in place draining clear yellow urine. We will continue to monitor at this time, optimization by Medicine and discussion of long-term care with family once patient is extubated. cc: Nico Roberson MD [facility]
[2019-12-01] MEDS: DULCOLAX PR SCH (08:12)
[2019-12-01] MEDS: HEPARIN SUBQ SCH (08:12)
[2019-12-01] MEDS: MYCOSTATIN SUSP PO SCH ×3 (08:12→16:01)
[2019-12-01] MEDS: MAXIPIME 1 GM in NS 50 ML IV SCH (08:16)
[2019-12-01] MEDS: HALDOL IV PRN (08:19)
[2019-12-01 09:23] LABS: ALLEN TEST YES; BLOOD TYPE ARTERIAL; HCO3-(ACT) 23.3 mmoll (20.0-26.0); METHB 1.3 % (0.0-1.5); MODALITY VENTILATOR; O2HB 94.4 % (95.0-99.0); PCO2(98.6) 34 mmHg (35-45); PO2(98.6) 78 mmHg (60-100); SAMPLE BLOOD; SAO2 96.5 % (95.0-100.0); THB 9.7 g/dL (11.5-17.4); pH(98.6) 7.42 (7.35-7.45)
[2019-12-01] MEDS: REGLAN IV SCH ×2 (09:37→16:01)
[2019-12-01] MEDS: MORPHINE IV PRN ×2 (10:05→17:09)
[2019-12-01] MEDS: LEVSIN-SL SL SCH ×3 (10:11→16:59)
--- NOTE | 2019-12-01 11:02 | PROGRESS NOTE ---
DATE: 12/01/2019 SUBJECTIVE: The patient remains intubated and sedated. There are no family members present at bedside. OBJECTIVE: Vital signs: Temperature 99.3 degrees, pulse 105, respirations 16, blood pressure 118/82, O2 saturation 98% on 30% FiO2 mechanical ventilation. General: Chronically ill white male, lying in bed, in no acute distress. HEENT: Normocephalic, atraumatic. Pupils equal and reactive. Mucous membranes dry. NG tube in place. Skin: Pale, warm, and dry. Nephrostomy tubes in place. Right tube remains to have greater output with clear yellow urine and the left has trace amounts of blood with clear yellow urine. Neck: Supple, no JVD observed. Cardiovascular: S1, S2, occasional S4. Tachycardic rate and rhythm. No murmurs or gallops noted. Respiratory: Coarse lungs anteriorly. Abdomen: Soft, nontender, nondistended. Hypoactive bowel sounds. Genitourinary: Not inspected. Extremities: No clubbing, cyanosis, or edema noted. Neurological: Sedated. LABORATORY DATA: WBC 14.15, hemoglobin 8.6, hematocrit 28.4, platelet count 289,000. Sodium 145, potassium 4.6, chloride 109, carbon dioxide 20, anion gap 16, BUN 51, creatinine 2.1. Intake 1998, output 2390. IMPRESSION: 1. Acute renal failure related to obstructive uropathy. Status post bilateral nephrostomy tube placement. He continues with excellent urine output from both left and right tubes. His creatinine continues to improve and is stable. At this time, we will sign off. 2. Blood pressure, stable. 3. Fluid volume, euvolemic on exam. 4. Electrolytes, stable. 5. Metabolic anion gap acidosis related to renal failure, improved. 6. Nutrition. Tube feeding in place. 7. Medication review. IV Robaxin and Reglan. I would like to thank you for allowing us to follow with this patient. Dictated by LOULOU Pulido for Carlos Gómez MD Face to face encounter, data reviewed, discussed with Marquez De Guzman on 11/30/18. I agree with the above assessment and plan of care. cc: Carlos Gómez MD [facility]
[2019-12-01] MEDS: LIDODERM TOP SCH (11:39)
--- NOTE | 2019-12-01 12:13 | Diag Imaging Result Doc PS360 ---
EXAM: CHEST-PORTABLE HISTORY: change in resp. status TECHNIQUE: Single view COMPARISON: 5:07 AM FINDINGS: The lungs are well expanded. No change in the endotracheal tube or nasogastric tube. The heart is not enlarged. The vessels are not distended. There are no infiltrates. No effusion identified. IMPRESSION: Stable chest Electronically signed by Dev Bae 12/01/2019 12:11 PM
[2019-12-01] MEDS: LEVAQUIN 500 MG/D5W 500 MG/100 ML IVPB IV SCH (13:54)
[2019-12-01] MEDS: PROTONIX IV SCH (13:55)
--- NOTE | 2019-12-01 16:43 | PROGRESS NOTE ---
DATE: 12/01/2019 SUBJECTIVE: Apparently, he had a lot of secretions, looked like tube feeding. We stopped his tube feeding, put his NG tube to wall suction. He was tolerating initial attempts for weaning trials, but concerned about his secretions and so we will turn off the tube feeding for now. OBJECTIVE: Vital Signs: His temperature maximum was 99.3 degrees, pulse 132, respirations 19, blood pressure 98/85. Eyes: Pupils are equal and round. General: He is awake and responsive to questions. Still intubated. Urine output was 600 mL. IMAGING: Chest x-ray: Lungs are well expanded. No change in endotracheal tube or nasogastric tube. Stable chest. ASSESSMENT AND PLAN: 1. A 53-year-old with metastatic urethral carcinoma of the bladder, presented to the hospital with acute kidney injury and creatinine elevated at 33. Initially started on dialysis with CT scan showing bilateral obstruction due to a bladder mass. Patient subsequently has undergone nephrostomy tube, bilateral, and seemed to be draining adequately. Left nephrostomy tube with smaller volume than the right. Both sides are clear yellow. Renal functions improving. Creatinine down to 2.1. Good urinary output from nephrostomy tubes. The patient remains on tube feeds, but we have had to stop that. We are trying to wean off the ventilator. 2. Acute hypoxemic respiratory failure. Electively intubated secondary to percutaneous nephrostomy placement on 11/27/2019. He has bilateral multifocal pneumonia and atelectasis. Chest x-ray showed stable chest. 3. Acute renal failure due to obstruction, bladder cancer, and has bilateral nephrostomy tubes, doing better. 4. Anion gap metabolic acidosis, which is improved. He is compensated with a metabolic alkalosis. 5. Bladder cancer diagnosed a year ago. No treatment pursued. Status post percutaneous bilateral nephrostomy tubes. 6. Severe microcytic anemia. Follow hemoglobin and hematocrit. 7. Fever and worsening leukocytosis. 8. Prognosis is poor. Trying to wean off the ventilator, so we have stopped the tube feeding and he has an NG tube to suction. We will continue antibiotics of Levaquin and Zyvox and cefepime. Continue bronchodilators. cc: Tramaine Calloway MD
[2019-12-01] MEDS: PHENERGAN IV PRN ×2 (18:25→22:19)
[2019-12-01] MEDS: DEMEROL IV PRN ×2 (18:25→22:18)
--- NOTE | 2019-12-01 18:50 | PROVIDER PROGRESS NOTE ---
Progress Note Dr. Black Progress Note/Pulmonary and or critical care Subjective: The patient stays intubated. He apparently had nausea and vomiting this morning. He still had fever this morning. Sister is at the bedside and voicing wanting patient to be comfortable. Input was appreciated from Dr. Calloway and other teams on the case. Objective: Vital Signs: T 97.8(fever in last 24 hours), AK 118, RR 16, BP 105/76 and SaO2 93% on AC 10, 60%, 500, 5. I/O: -392ml. Physical Examination: General: Intubated. No acute distress noted. Bilateral nephrostomy tubes noted with urine inside. HEENT: Normocephalic. Trachea midline. ET tube in place. Mucosa pink and dry. Chest: Mechanically ventilated. Symmetrical excursion. Good air entry bilaterally with inspiratory crackles bibasilarly. CVS: Tachycardia. S1 and S2 appreciated. Abdomen: Soft. Non-distended. Bowel sounds present. Generalized tenderness. Extremities: No edema. No cyanosis. No clubbing. Neuro: Sedated. Responsive to tactile stimuli. Labs and Radiology: Laboratory Results 11/30/19 12/01/19 12/01/19 20:19 00:16 04:38 WBC RBC Hgb Hct MCV MCH MCHC RDW Std Deviation Plt Count MPV Immature Gran % (Auto) Neut % (Auto) Lymph % (Auto) Mcmullen % (Auto) Eos % (Auto) Baso % (Auto) Immature Gran # (Auto) Neut # (Auto) Lymph # (Auto) Mcmullen # (Auto) Eos # (Auto) Baso # (Auto) Specimen Type Sample Site pH pCO2 pO2 HCO3 Base Excess Oxyhemoglobin ABG O2 Sat (Calculated) ABG O2 Saturation ABG Carboxyhemoglobin ABG Methemoglobin Tramaine Test A-a O2 Difference Total Hemoglobin Lactate Blood Gas Modality Vent Mode Spontaneous Rate FiO2 % Tidal Volume PEEP Pressure Support Sodium Potassium Chloride Carbon Dioxide Anion Gap BUN Creatinine Estimated GFR/1.73 m2 BUN/Creatinine Ratio Glucose POC Glucose 91 107 H 95 Calculated Osmolality Calcium 12/01/19 12/01/19 12/01/19 05:03 05:30 05:30 WBC 14.15 H RBC 4.31 L Hgb 8.6 L Hct 28.4 L MCV 65.9 L MCH 20.0 L MCHC 30.3 L RDW Std Deviation 25.7 H Plt Count 289 MPV Not Reportable Immature Gran % (Auto) 4.7 H Neut % (Auto) 65.6 Lymph % (Auto) 11.4 L Mcmullen % (Auto) 11.4 H Eos % (Auto) 6.8 Baso % (Auto) 0.1 Immature Gran # (Auto) 0.67 H Neut # (Auto) 9.27 H Lymph # (Auto) 1.62 Mcmullen # (Auto) 1.61 H Eos # (Auto) 0.96 H Baso # (Auto) 0.02 Specimen Type ARTERIAL Sample Site R RADIAL pH 7.40 pCO2 37 pO2 99 HCO3 23.8 Base Excess -1.5 Oxyhemoglobin ABG O2 Sat (Calculated) ABG O2 Saturation ABG Carboxyhemoglobin ABG Methemoglobin Tramaine Test YES A-a O2 Difference 69.0 Total Hemoglobin Lactate 1.30 Blood Gas Modality VENTILATOR Vent Mode Spontaneous Rate 10 FiO2 % 30.0 Tidal Volume 500 PEEP 5.0 Pressure Support Sodium 145 Potassium 4.6 Chloride 109 H Carbon Dioxide 20 L Anion Gap 16 BUN 51 H Creatinine 2.1 H Estimated GFR/1.73 m2 33 BUN/Creatinine Ratio 24 Glucose 105 H POC Glucose Calculated Osmolality 303 Calcium 9.6 12/01/19 12/01/19 12/01/19 07:29 09:13 11:53 WBC RBC Hgb Hct MCV MCH MCHC RDW Std Deviation Plt Count MPV Immature Gran % (Auto) Neut % (Auto) Lymph % (Auto) Mcmullen % (Auto) Eos % (Auto) Baso % (Auto) Immature Gran # (Auto) Neut # (Auto) Lymph # (Auto) Mcmullen # (Auto) Eos # (Auto) Baso # (Auto) Specimen Type ARTERIAL Sample Site L RADIAL pH 7.42 pCO2 34 L pO2 78 HCO3 23.3 Base Excess -2.0 Oxyhemoglobin 94.4 L ABG O2 Sat (Calculated) 13.0 L ABG O2 Saturation 96.5 ABG Carboxyhemoglobin 0.90 ABG Methemoglobin 1.3 Tramaine Test YES A-a O2 Difference 93.0 Total Hemoglobin 9.7 L Lactate 1.20 Blood Gas Modality VENTILATOR Vent Mode CPAP Spontaneous Rate FiO2 % 30.0 Tidal Volume PEEP 5.0 Pressure Support 10.00 Sodium Potassium Chloride Carbon Dioxide Anion Gap BUN Creatinine Estimated GFR/1.73 m2 BUN/Creatinine Ratio Glucose POC Glucose 113 H 109 H Calculated Osmolality Calcium 03/11/20 15:27 WBC RBC Hgb Hct MCV MCH MCHC RDW Std Deviation Plt Count MPV Immature Gran % (Auto) Neut % (Auto) Lymph % (Auto) Mcmullen % (Auto) Eos % (Auto) Baso % (Auto) Immature Gran # (Auto) Neut # (Auto) Lymph # (Auto) Mcmullen # (Auto) Eos # (Auto) Baso # (Auto) Specimen Type Sample Site pH pCO2 pO2 HCO3 Base Excess Oxyhemoglobin ABG O2 Sat (Calculated) ABG O2 Saturation ABG Carboxyhemoglobin ABG Methemoglobin Tramaine Test A-a O2 Difference Total Hemoglobin Lactate Blood Gas Modality Vent Mode Spontaneous Rate FiO2 % Tidal Volume PEEP Pressure Support Sodium Potassium Chloride Carbon Dioxide Anion Gap BUN Creatinine Estimated GFR/1.73 m2 BUN/Creatinine Ratio Glucose POC Glucose 99 Calculated Osmolality Calcium Assessment: Acute hypoxemic respiratory failure. Electively intubated secondary to percutaneous nephrostomy placement on 11/27/19. Bilateral multifocal pneumonia with atelectasis. Radiographically resolved. CXR today shows stable chest. Acute renal failure secondary to obstruction with bladder cancer. Dialysis on hold per Dr. Gómez. Bladder cancer, diagnosed one year ago, but no treatment pursued. s/p percutaneous nephrostomy placement this morning. Severe microcytic anemia. Fever and leukocytosis (improving). Poor prognosis. Plan: We aborted weaning trials for today secondary to vomiting. We put patient back on ventilation. We checked Ventilation and titrated to the patients needs per clinical protocols. We will keep monitoring patients response closely. We titrated Sedative (Diprivan) to the patients needs per clinical protocols. We will keep monitoring patients response closely. Continue antibiotics including Levaquin and Zyvox. On Day 6. Cefepime Day 2. Continue bronchodilators. Continue GI and DVT prophylaxis. We discuss patients condition and care plan with Patients sister at the bedside and patients daughter on phone. All questions have been answered. Evaluation time in minutes: 33 minutes
[2019-12-01] MEDS: ATIVAN IV PRN ×4 (19:32→23:32)
[2019-12-02] MEDS: ATIVAN IV PRN ×8 (01:52→13:02)
[2019-12-02] MEDS: DEMEROL IV PRN ×3 (02:49→11:43)
[2019-12-02] MEDS: PHENERGAN IV PRN ×3 (02:50→11:43)
[2019-12-02] MEDS: SODIUM CHLORIDE 0.9% INJ PRN ×2 (07:30→11:43)
[2019-12-02] MEDS ORDERED: LOPRESSOR IV SCH (09:30)
--- NOTE | 2019-12-02 10:06 | PROGRESS NOTE ---
DATE: 12/02/2019 SUBJECTIVE: His respirations appear agonal. He is not responsive, except still to pain. He is tachycardic, diaphoretic. He has been changed to comfort measures. OBJECTIVE: Temperature 100.1 degrees, pulse 150, respirations 19, blood pressure 140/99.Eyes: Pupils are equal and round. Lungs: Clear in all lung dumas. Cardiovascular exam: Regular rhythm and rate without murmur or S3. Abdomen: Distended. Extremities: Pedal edema. TUBES: Bilateral nephrostomy tubes. ASSESSMENT/PLAN: End-stage papillary carcinoma. This is a 53-year-old with metastatic bladder cancer, who presented with acute kidney injury. Creatinine elevated at 33. He was started on dialysis. CT scan obtained showed bilateral obstruction and bladder mass. The patient underwent bilateral nephrostomy tubes on 11/27/2019, was intubated. Family and patient have requested comfort care. He has metastatic disease and there is no further treatment available. Will continue comfort care. cc: Tramaine Calloway MD
[2019-12-02 16:03] VITALS: BP 100/70
--- NOTE | 2019-12-02 17:52 | DISCHARGE SUMMARY ---
ADMISSION DATE: 11/24/2019 DISCHARGE DATE: 12/02/2019 He presented on 11/24/2019 a 53-year-old diagnosed with bladder cancer about a year before. He has refused treatments. The only treatment he has had the only treatment he has had reportedly was he takes Goody Powders and he got some medication off the Internet to treat parasitic infection to use as parasitic infection for dogs and some dog worm medication. Unclear how much and how long he has been taking that. Complains of weakness, dizziness and vomiting and now he would like to pursue some treatment. His creatinine was 33. He was in profound renal failure for which he was undergoing dialysis which was started when he got here and he had bilateral obstruction of his ureters, so bilateral nephrostomy tubes were placed and did have improvement of renal function, difficulty trying to get him off of the ventilator. He has stage IV metastatic advanced bladder cancer and he and his family had asked to just quit the ventilator and go to comfort measures, which we did. At 1401 he was in asystole and unresponsive. No respiratory activity and pronounced . cc: Tramaine Calloway MD
== END 2019-12-02 14:01 | disposition expired | DRG 682 ==
LOC: ED 10:34 → SUATTDRO 14:20 → ICU 14:20
PROVIDERS: ATTEND Emergency Medicine